=== PATIENT | female | born 1950 | race Caucasian/White ===

== ENCOUNTER 2020-04-08 13:31 | Inpatient (IN) | payer MEDICARE, MEDICAID ==
[2020-04-08 14:58] LABS: Bacteria/HPF None Seen HPF (None Seen); Bilirubin Negative (Negative); Blood, Urine 3+ (Negative); Clarity Extra Turbid (Clear); Glucose, Urine (Dipstick) Normal (Negative); Leukocyte 500 Leu/uL (Negative); Nitrite Negative (Negative); Protein, Urine (Dipstick) 200 mg/dL (Neg-Trace); RBC/HPF Greater than 50 HPF (0-3); Urobilinogen Normal mg/dL (Less than 2); WBC/HPF Greater than 50 HPF (0-3); Yeast-Budding 2+ HPF (None Seen)
[2020-04-08 15:01] LABS: Hemoglobin 10.9 g/dL (12.0-16.0); Mean Corpuscular HGB CONC 33.1 g/dL (32.0-36.0); Mean Corpuscular Hemoglobin 29.7 pg (27.0-31.0); Mean Corpuscular Volume 89.7 fL (78.0-98.0); Mean Platelet Volume 9.6 fL (7.4-10.4); Platelet Count 145 thou/uL (130-400); RBC Distribution Width 12.6 % (11.5-14.5); Red Blood Cell (RBC) Count 3.69 mill/uL (4.20-5.40); White Blood Cell (WBC) Count 3.9 thou/uL (4.8-10.8)
--- NOTE | 2020-04-08 15:05 | CT ---
CT Stone Protocol 04/08/2020 2:17 PM HISTORY: Dysuria and yeast in urine for several weeks. COMPARISON: 01/30/2020 Technique: Multiple contiguous axial CT images are obtained through the abdomen and pelvis without IV contrast. Coronal reformats are provided. FINDINGS: This examination is limited for the evaluation of solid organs and vascular structures due to the lac k of intravenous contrast. Lower Chest: Vascular calcifications in the coronary arteries and involving the thoracic aorta lung b ases are clear. Abdomen: Liver: Grossly normal non-enhanced CT appearance. Gallbladder: Surgically absent. Pancreas: Grossly normal nonenhanced CT appearance. Spleen: Upper limits of normal in size in AP dimension. Adrenals: Grossly normal nonenhanced CT appearance. Kidneys/ureters: Bilateral ureteral stents remain in place with mild persistent bilateral hydronephro sis slightly greater on the left. Bilateral perinephric stranding is again seen Pelvis: Urinary bladder: Incompletely distended. Ureteral stents are located within the urinary bladder. Reproductive Organs: Evidence of hysterectomy. Bowel: Normal caliber. Appendix: Not definitely visualized. Peritoneum: Previously noted lymphadenopathy in the region of the central mesentery has improved, the re is persistent mild inflammatory stranding and haziness of the mesentery in this region. There are mildly prominent lymph nodes in the region gastrohepatic ligament, these lymph nodes have diminis hed in size compared to prior study. The enlarged lymph nodes seen in the central mesentery of the abdomen have also decreased in size. Retroperitoneum: Previously seen retroperitoneal lymphadenopathy does appear improved compared to the prior exam. A precaval lymph node in region of the lynda hepatis previously measured 5.6 cm in greatest dimension, and on today's exam measures 4.4 cm in greatest dimension. Largest left para-aort ic lymph node previously measured 3 cm, and this lymph node on today's examination measures 2 cm. Additional aortocaval lymph nodes much smaller in size. However, there is inflammatory stranding seen in an aortocaval retroperitoneal location. There is also stranding and soft tissue attenuation seen in the left hemipelvis with presacral inflammatory changes and edema which is overall stable com pared to the prior exam. Vessels: Dense vascular calcifications are seen in the abdominal aorta and involving the iliac arteri es as well as splenic artery.. Abdominal Wall: Prominent bilateral inguinal lymph nodes are again seen. Bones: Postoperative changes lumbosacral junction are again seen with degenerative changes in the lum bar spine. No suspicious lytic or sclerotic osseous lesions are identified. IMPRESSION: 1. Bilateral ureteral stents in place with mild bilateral hydronephrosis slightly greater on the left . This is overall similar to the prior exam. Persistent mild symmetric bilateral perinephric stranding is seen. Kidneys are unable to be further evaluated due to lack of intravenous contrast. 2. Spleen remains at the upper limits of normal in size. 3. Improvement in aortocaval and mesenteric lymphadenopathy. Mildly prominent bilateral inguinal lymp h nodes are again seen. Iliac chain lymph nodes are also again seen which are predominantly fatty replaced on today's exam. 4. Inflammatory stranding in the aortocaval/retroperitoneal location with greater inflammatory change s and soft tissue appearing density again seen in the left hemipelvis not significantly changed.
[2020-04-08 15:06] LABS: Yeast-Hyphae 1+ HPF (None Seen)
[2020-04-08 15:19] LABS: ALT (SGPT) 12 U/L (8-55); AST (SGOT) 24 U/L (5-34); Albumin 3.6 g/dL (3.4-4.8); Alkaline Phosphatase 210 U/L (40-110); Anion Gap 11 mmol/L (10-20); BUN (Urea Nitrogen) 23 mg/dL (9.8-20.1); Bilirubin, Total 1.2 mg/dL (0.2-1.2); Calc. Creatinine Clearance 0 mL/min (70-130); Calcium 8.7 mg/dL (7.8-10.44); Carbon Dioxide 25 mmol/L (23-31); Chloride 105 mmol/L (98-107); Estimated GFR-MDRD 39; Globulin 2.5 g/dL (2.4-3.5); Glucose 104 mg/dL (80-115); Potassium 4.1 mmol/L (3.5-5.1); Protein, Total 6.1 g/dL (6.0-8.3); Sodium 137 mmol/L (136-145)
[2020-04-08 15:25] LABS: Band 3 % (5-11); Lymphocytes 57 % (21-51); MDiff Complete? YES; Monocytes 8 % (0-10); Neutrophil 19 % (42-75); Ovalocytes SLIGHT = 2-5 cells (100X) (0-1/hpf); Platelet Morphology Comment Appears Adequate; Polychromasia SLIGHT = 2-3 cells (100X) (0-2/hpf); Reactive Lymphocytes 12 % (0-10); Schistocytes SLIGHT = 2-5 cells (100X) (0-1/hpf)
[2020-04-08] MEDS ORDERED: Vancomycin HCl 25 MG/ML Oral PO SCH (18:30)
[2020-04-08] MEDS ORDERED: MEROPENEM 1 GM/50 ML 1 GM in Premix Bag 1 BAG IVPB SCH (19:00)
[2020-04-08] MEDS: Sodium Chloride 0.9% 1,000 ML IV SCH (20:11)
[2020-04-08] MEDS: Gabapentin 300 MG CAP PO SCH (20:32)
[2020-04-08] MEDS: Ezetimibe 10 MG TAB PO SCH (20:32)
[2020-04-08] MEDS: Insulin Glargine 70 UNITS in Pre-Filled Syringe 1 EACH SC SCH (20:39)
[2020-04-08] MEDS: Voriconazole 50 MG TAB PO SCH (20:41)
[2020-04-08] MEDS: Apixaban 5 MG TAB PO SCH (20:52)
[2020-04-08] MEDS ORDERED: INSULIN GLARGINE HUM REC ANLOG 70 UNIT SQ SCH (21:00)
[2020-04-08] MEDS ORDERED: [UNRECOGNIZED DRUG - OTHER] SQ SCH (21:00)
[2020-04-08 22:41] VITALS: BMI 24.7
[2020-04-09] MEDS: Vancomycin HCl 25 MG/ML Oral PO SCH ×5 (00:41→23:42)
--- NOTE | 2020-04-09 01:40 | HP ---
CHIEF COMPLAINT: Transferred for direct admit from Dr. Simmons' office for bladder infection. HISTORY OF PRESENT ILLNESS: The patient is a 69-year-old female, with past medical history of CLL; coronary artery disease; fibromyalgia; atrial fibrillation, on Eliquis; and diabetes mellitus, who was recently discharged from the hospital after a prolonged hospitalization for Enterococcus bacteremia and UTI. She had bilateral ureteral stent placement in December. The patient completed an outpatient course of vancomycin and subsequently was symptom-free for a few days according to the patient. Afterwards, her symptoms started to return and she visited Dr. Simmons for followup, where her urine culture revealed evidence of fungal infection. She was sent to the hospital for initiation of IV antibiotics after failing an outpatient regimen. REVIEW OF SYSTEMS: Negative, except as noted in the HPI. PAST MEDICAL HISTORY: As noted above. PAST SURGICAL HISTORY: Ear surgery, bladder lift, appendectomy, tubal ligation, hysterectomy, and tonsillectomy. SOCIAL HISTORY: The patient denies alcohol use, illicit drug use, or smoking. FAMILY HISTORY: Noncontributory. ALLERGIES: PATIENT IS ALLERGIC TO ASPIRIN, CEPHALOSPORINS, PENICILLINS, AND QUINOLONES. PHYSICAL EXAMINATION: GENERAL: Patient is alert and oriented x3. HEENT: Head is normocephalic and atraumatic. Extraocular muscles are intact. NECK: Supple. CHEST: Clear to auscultation bilaterally. CARDIOVASCULAR EXAMINATION: Showing normal S1, S2, regular rate and rhythm. No murmurs, rubs, or gallops. ABDOMEN: Soft, nontender, and nondistended. EXTREMITIES: Show no edema or rashes. ASSESSMENT: 1. Fungal urinary tract infection complicated by immunosuppression and ureteral stents with some evidence of ureteral obstruction. 2. Chronic lymphocytic leukemia. 3. Coronary artery disease. 4. Atrial fibrillation. PLAN: Discussed with Dr. Simmons. We will admit the patient to the hospital and initiate voriconazole 400 mg twice daily loading dose and then 200 mg twice daily. We will also initiate meropenem to cover for bacterial infection. The patient did develop Clostridium difficile on her last hospitalization and Dr. Simmons recommended treating her with oral vancomycin prophylactically. Job ID: [id number]
[2020-04-09] MEDS: MEROPENEM 1 GM/50 ML 1 GM in Premix Bag 1 BAG IVPB SCH ×3 (03:48→20:59)
[2020-04-09 07:35] LABS: Anion Gap 10 mmol/L (10-20); BUN (Urea Nitrogen) 19 mg/dL (9.8-20.1); Calc. Creatinine Clearance 52 mL/min (70-130); Calcium 8.2 mg/dL (7.8-10.44); Carbon Dioxide 26 mmol/L (23-31); Chloride 109 mmol/L (98-107); Estimated GFR-MDRD 51; Glucose 113 mg/dL (80-115); Potassium 4.2 mmol/L (3.5-5.1); Sodium 141 mmol/L (136-145)
[2020-04-09 08:31] LABS: Band 13 % (5-11); Hemoglobin 9.9 g/dL (12.0-16.0); Lymphocytes 45 % (21-51); MDiff Complete? YES; Mean Corpuscular HGB CONC 32.2 g/dL (32.0-36.0); Mean Corpuscular Hemoglobin 29.2 pg (27.0-31.0); Mean Corpuscular Volume 90.6 fL (78.0-98.0); Mean Platelet Volume 9.7 fL (7.4-10.4); Monocytes 16 % (0-10); Neutrophil 26 % (42-75); Platelet Count 121 thou/uL (130-400); Platelet Morphology Comment Appears Decreased; RBC Distribution Width 12.4 % (11.5-14.5); RBC Morphology Normal; Red Blood Cell (RBC) Count 3.38 mill/uL (4.20-5.40); White Blood Cell (WBC) Count 2.8 thou/uL (4.8-10.8)
[2020-04-09] MEDS: Gabapentin 300 MG CAP PO SCH ×3 (09:05→21:00)
[2020-04-09] MEDS: Apixaban 5 MG TAB PO SCH ×2 (09:05→21:00)
[2020-04-09] MEDS: Sodium Chloride 0.9% 1,000 ML IV SCH ×2 (09:05→21:30)
[2020-04-09] MEDS: Acetaminophen 325 MG TAB PO PRN (09:09)
--- NOTE | 2020-04-09 10:35 | PDOC.HOSPP ---
- Subjective Encounter Date: 04/09/20 Subjective: The patient complains of lower abdominal pain and dizziness when ambulating. - Objective Vital Signs & Weight: Vital Signs (12 hours) Temp Pulse Resp BP Pulse Ox 04/09/20 07:15 98.2 F 79 16 101/62 96 04/09/20 03:51 97.7 F 82 18 113/66 98 04/09/20 00:00 98 F 82 18 134/62 97 Weight Weight 144 lb 8 oz Result Diagrams: 04/09/20 06:22 04/09/20 06:22 Additional Labs: Accuchecks 04/09/20 04/08/20 05:01 20:41 POC Glucose 130 H 125 H Hospitalist ROS - Medication Medications: Active Medications Generic Name Dose Route Start Last Admin Trade Name Freq PRN Reason Stop Dose Admin Acetaminophen 650 mg 04/08/20 18:20 04/09/20 09:09 Tylenol PO 650 mg Q4H PRN Administration Headache/Fever/Mild Pain (1-3) Apixaban 5 mg 04/08/20 21:00 04/09/20 09:05 Eliquis PO 5 mg BID CORIN Administration Ezetimibe 10 mg 04/08/20 21:00 04/08/20 20:32 Zetia PO 10 mg HS CORIN Administration Gabapentin 600 mg 04/08/20 21:00 04/09/20 09:05 Neurontin PO 600 mg TID CORIN Administration Sodium Chloride 1,000 mls @ 75 mls/hr 04/08/20 19:15 04/09/20 09:05 Normal Saline 0.9% IV 1,000 mls .[id number] CORIN Administration Meropenem 1 gm/ Device 50 mls @ 100 mls/hr 04/09/20 04:00 04/09/20 03:48 IVPB 50 mls 0400,1200,2000 CORIN Administration Insulin Glargine 70 units/ 0.7 mls @ 0 mls/hr 04/08/20 21:00 04/08/20 20:39 Miscellaneous Medication SC 0.7 mls HS CORIN Administration Vancomycin HCl 125 mg 04/08/20 23:59 04/09/20 05:10 First Vancomycin PO 125 mg Q6HR CORIN Administration - Exam General Appearance: awake alert Neck: supple Respiratory: normal chest expansion, no tachypnea Extremities: no cyanosis, no clubbing, no edema Neurological: cranial nerve grossly intact, no weakness Hosp A/P - Plan 1. Complicated fungal UTI. 2. Immunosuppressed status due to CLL. 3. Lower abdominal pain due to cystitis. 4. Dizziness with low blood pressure. 5. Diabetes mellitus on insulin. Continue IV fluids. The patient is on voriconazole, meropenem, and oral vancomycin per ID recommendations. Urine cultures are pending.
[2020-04-09] MEDS: tiZANidine HCl 4 MG TAB PO PRN ×2 (11:20→21:05)
[2020-04-09] MEDS ORDERED: Voriconazole 50 MG TAB PO SCH (11:30)
[2020-04-09] MEDS: Voriconazole 50 MG TAB PO SCH ×2 (11:38→21:02)
[2020-04-09] MEDS: HumuLIN 70/30 (300 UNITS/3 ML VIAL) SC SCH ×3 (11:40→17:10)
[2020-04-09] MEDS: VENCLEXTA PO SCH (13:55)
--- NOTE | 2020-04-09 15:27 | EKG ---
Test Reason : Blood Pressure : / mmHG Vent. Rate : 083 BPM Atrial Rate : 083 BPM P-R Int : 118 ms QRS Dur : 066 ms QT Int : 374 ms P-R-T Axes : 011 -17 018 degrees QTc Int : 439 ms Normal sinus rhythm Normal ECG Confirmed by GREG DING DO ([id number]), editorial assistant JOSE MONDRAGON ([id number]) on 04/09/2020 3:27:20 PM Referred By: Confirmed By:GREG DING DO
[2020-04-09] MEDS ORDERED: Dextrose 5% in Water 1,000 ML IV PRN (17:04)
[2020-04-09] MEDS ORDERED: Dextrose 50% Abboject 50 ML SYRINGE IVP PRN (17:04)
--- NOTE | 2020-04-09 19:34 | CON ---
DATE OF CONSULTATION: 04/09/2020 REASON: Refractory cystitis with multiple drug allergies. HISTORY OF PRESENT ILLNESS: A 69-year-old, whom I had seen a few times in the past few years. The last time was in January 2020 when she presented with a history of CLL, initially managed conservatively, but more recently with an anti-CD20 monoclonal antibody. She presented with bacteremia and obstructive uropathy. She had bilateral stents and she had extensive abdominal and pelvic lymphadenopathy and having developed E faecalis urosepsis. The organism had the usual susceptibility profile and she was discharged on IV vancomycin because of allergy history to beta-lactams. She received it for about 10 days and she also had to take oral vancomycin because of Clostridium difficile colitis. Since discharge, she has had recurrence of the dysuria. We repeated the urine culture and yeast were identified greater than 100,000 colony-forming units per mL and we tried Diflucan, but she reported urticaria-type lesions and we had to discontinue it and we were thinking of giving her voriconazole, but she became quite symptomatic with gross hematuria, so we decided to admit her. She had some low-grade temperature elevation at home. No back pain. No headaches. No shortness of breath. A little bit of cough, but no sputum production. No joint symptoms. No vomiting. PAST MEDICAL HISTORY: Type 2 diabetes; fibromyalgia; CLL with progression and then treatment with anti-CD20 monoclonal antibody; hypertension; cervical cancer, in remission after hysterectomy; and anxiety and depression. HISTORY SURGICAL HISTORY: Lumpectomy, ear surgery, bladder lift, and appendectomy. SOCIAL HISTORY: Former smoker. She used to work as a cook. Disabled. FAMILY HISTORY: Noncontributory. ALLERGIES: CEPHALEXIN, PENICILLIN, ASPIRIN, AND NOW DIFLUCAN. CURRENT MEDICATIONS: 1. Tylenol. 2. Eliquis. 4. Neurontin. 5. Insulin. 6. Meropenem. 7. Venclexta. 8. Tizanidine. 9. Voriconazole. FAMILY HISTORY: Noncontributory. PHYSICAL EXAMINATION: VITAL SIGNS: T-max 99, now it is 98.1; blood pressure 114/70; pulse 84; respirations 18; and O2 saturation 97. SKIN: Unremarkable. Patient has a peripheral IV access. No Campos catheter. HEENT: Ocular movements conjugate. Oral cavity normal. She has no bill moore's slough teeth remaining in place. NECK: Supple. No jugular vein distention. LUNGS: Symmetric, clear breath sounds. HEART: S1 and S2, regular rate. No S3 or S4. ABDOMEN: Diffusely tender, but it is mildly tender. There is no guarding. No rebound tenderness. No bladder distention. There is a more tenderness in the suprapubic region and elsewhere noted. EXTREMITIES: No joint inflammatory activity. No edema. Moves all extremities equally. Pulses 1+ in dorsalis pedis. Cap refill normal. Plantar responses are flexor. No clonus. NEUROLOGIC: Cognitive function appears to be intact. She is oriented. Follows commands. Recollection is good. LABORATORY DATA: White cell count is 3.9 and 2.8, hemoglobin 9.9, platelets 121 , neutrophil percentage 26, 13% bands, total neutrophil count of above 900, and monocyte 16. Chemistry with a creatinine 1.35 and now 1.08. Liver profile normal. Alkaline phosphatase 210 with albumin of 3.6. Urinalysis with greater than 50 rbc's, greater than 50 wbc's, and yeast 1+. IMAGING STUDY: Include an abdomen and pelvis CT done without contrast. The liver was grossly normal. Gallbladder absent. Grossly normal pancreas, upper limits of spleen. Bilateral ureteral stents in place with mild persistent bilateral hydronephrosis, slightly greater on the left side. Bilateral perinephric stranding seen. Urinary bladder incompletely distended. Lymphadenopathy in the central mesentery has improved. There is persistent mild inflammatory stranding in the mesentery and mild mildly prominent lymph nodes in the region of the gastrohepatic ligament. These lymph nodes had diminished in size compared with prior study. Retroperitoneal lymphadenopathy does appear improved compared to the prior exam. ASSESSMENT AND DISCUSSION: 1. Type 2 diabetes. 2. Chronic lymphocytic leukemia with chemotherapy with anti-CD20 monoclonal antibody with improvement in lymphadenopathy in the abdominal area. Stents for management of obstructive uropathy with sepsis due to E faecalis in January, which has been treated. Now, she has likely Martha species and could not tolerate Diflucan and is currently on voriconazole. DISCUSSION: Patient has a new set of urine sample for evaluation and we will see what grows out of it. We will continue meropenem and voriconazole for the time being. Hopefully, the stents will be able to be removed soon. We will have Dr. Weston take a look at her. Job ID: [id number] [facility]
[2020-04-09] MEDS: Ezetimibe 10 MG TAB PO SCH (20:59)
[2020-04-09] MEDS: Insulin Glargine 70 UNITS in Pre-Filled Syringe 1 EACH SC SCH (21:01)
[2020-04-10] MEDS: Acetaminophen 325 MG TAB PO PRN ×2 (02:20→20:47)
[2020-04-10] MEDS: MEROPENEM 1 GM/50 ML 1 GM in Premix Bag 1 BAG IVPB SCH ×2 (04:06→11:58)
[2020-04-10] MEDS: Vancomycin HCl 25 MG/ML Oral PO SCH (05:46)
[2020-04-10 06:33] LABS: Hemoglobin 10.1 g/dL (12.0-16.0); Mean Corpuscular HGB CONC 32.7 g/dL (32.0-36.0); Mean Corpuscular Hemoglobin 29.9 pg (27.0-31.0); Mean Corpuscular Volume 91.4 fL (78.0-98.0); Mean Platelet Volume 8.9 fL (7.4-10.4); Platelet Count 147 thou/uL (130-400); RBC Distribution Width 12.5 % (11.5-14.5); Red Blood Cell (RBC) Count 3.39 mill/uL (4.20-5.40); White Blood Cell (WBC) Count 3.8 thou/uL (4.8-10.8)
[2020-04-10 06:34] LABS: Anion Gap 10 mmol/L (10-20); BUN (Urea Nitrogen) 19 mg/dL (9.8-20.1); Calc. Creatinine Clearance 47 mL/min (70-130); Calcium 7.6 mg/dL (7.8-10.44); Carbon Dioxide 24 mmol/L (23-31); Chloride 111 mmol/L (98-107); Estimated GFR-MDRD 44; Glucose 60 mg/dL (80-115); Potassium 3.7 mmol/L (3.5-5.1); Sodium 141 mmol/L (136-145)
[2020-04-10 07:18] LABS: Band 1 % (5-11); Eosinophils 1 % (0-10); Lymphocytes 63 % (21-51); MDiff Complete? YES; Monocytes 10 % (0-10); Neutrophil 24 % (42-75); Platelet Morphology Comment Appears Adequate; RBC Morphology Normal; Reactive Lymphocytes 1 % (0-10)
[2020-04-10] MEDS: Apixaban 5 MG TAB PO SCH ×2 (08:19→20:49)
[2020-04-10] MEDS: Gabapentin 300 MG CAP PO SCH ×3 (08:19→20:48)
[2020-04-10] MEDS: HumuLIN 70/30 (300 UNITS/3 ML VIAL) SC SCH (08:22)
[2020-04-10] MEDS: Voriconazole 50 MG TAB PO SCH ×2 (08:26→22:30)
[2020-04-10] MEDS: Sodium Chloride 0.45% 1,000 ML IV SCH ×2 (11:57→20:50)
[2020-04-10] MEDS: VENCLEXTA PO SCH (11:58)
[2020-04-10] MEDS ORDERED: VENCLEXTA PO SCH (12:00)
--- NOTE | 2020-04-10 16:41 | PRG ---
DATE OF SERVICE: 04/10/2020 SUBJECTIVE: The patient is still having hematuria and dysuria, started with diarrhea. No headaches. No visual symptoms. No sore throat, odynophagia, or dysphagia. No abdominal pain. OBJECTIVE: VITAL SIGNS: T-max 100.5, BP 110/69, O2 saturations 99, pulse 80, and respirations 16. GENERAL: Appears in no acute distress. HEENT: Ocular movements conjugate. LUNGS: Symmetric clear breath sounds. HEART: S1 and S2. Regular rate. No S3 or S4. ABDOMEN: Soft, not distended, tender. Mild suprapubic distention. EXTREMITIES: Moves extremities equally. LABORATORY DATA: White cell count 3.8, hemoglobin 10.1, platelets 147. Sodium 141 and creatinine 1.21. Microbiology show Martha krusei. ASSESSMENT AND DISCUSSION: Type 2 diabetes, CLL on anti-CD20 monoclonal antibody treatment with improvement in lymphadenopathy still stents for management of obstructive uropathy associated with lymphoma, sepsis due to E. faecalis in January. Now, she has Martha krusei infection. We will contact Urology, Dr. Weston regarding the above. Discontinue meropenem and continue voriconazole. Add Micafungin. Although urinary tract penetration is limited, clinical reported experience has been positive. Job ID: [id number] [facility]
[2020-04-10] MEDS: Micafungin 100 MG in Sodium Chloride 0.9% 100 ML IVPB SCH (17:41)
[2020-04-10] MEDS: Insulin Regular 300 UNITS/3 ML VIAL SC PRN (17:44)
--- NOTE | 2020-04-10 18:19 | PDOC.HOSPP ---
- Subjective Encounter Date: 04/10/20 Subjective: The patient complains of hematuria that has been present for the past 2 days. - Objective Vital Signs & Weight: Vital Signs (12 hours) Temp Pulse Resp BP BP BP Pulse Ox 04/10/20 08:17 99 04/10/20 07:47 98.7 F 80 16 110/69 88/52 L 105/52 L 99 Weight Admit Weight 144 lb Weight 144 lb 8 oz I&O: 04/09/20 04/10/20 04/11/20 06:59 06:59 06:59 Intake Total 2575 Balance 2575 Result Diagrams: 04/10/20 05:53 04/10/20 05:53 Additional Labs: Accuchecks 04/10/20 04/10/20 04/10/20 16:45 11:21 08:26 POC Glucose 277 H 158 H 101 04/10/20 04/10/20 04/09/20 06:26 05:43 20:03 POC Glucose 96 52 L* 168 H Hospitalist ROS - Medication Medications: Active Medications Generic Name Dose Route Start Last Admin Trade Name Freq PRN Reason Stop Dose Admin Acetaminophen 650 mg 04/08/20 18:20 04/10/20 02:20 Tylenol PO 650 mg Q4H PRN Administration Headache/Fever/Mild Pain (1-3) Apixaban 5 mg 04/08/20 21:00 04/10/20 08:19 Eliquis PO 5 mg BID CORIN Administration Dextrose/Water 25 gm 04/09/20 17:04 04/09/20 17:11 Dextrose 50% IVP 25 gm PRN PRN Administration HYPOGLYCEMIA PROTOCOL Ezetimibe 10 mg 04/08/20 21:00 04/09/20 20:59 Zetia PO 10 mg HS CORIN Administration Gabapentin 600 mg 04/08/20 21:00 04/10/20 15:25 Neurontin PO 600 mg TID CORIN Administration Sodium Chloride 1,000 mls @ 100 mls/hr 04/10/20 10:15 04/10/20 11:57 1/2 Normal Saline IV 1,000 mls .Q10H CORIN Administration Micafungin Sodium 100 mg/ 100 mls @ 100 mls/hr 04/10/20 17:00 04/10/20 17:41 Sodium Chloride IVPB 100 mls 1700 CORIN Administration Insulin Human Regular 0 units 04/09/20 17:04 04/10/20 17:44 Humulin R SC 4 unit .MILD SLIDING PRN Administration MILD SLIDING SCALE Protocol Venclexta Patient's 0 each 04/09/20 12:00 04/10/20 11:58 Home Medication PO 1 each 1200 CORIN Administration Sodium Chloride 10 ml 04/09/20 21:00 04/10/20 08:23 Flush - Normal Saline IVF Not Given Q12HR CORIN Tizanidine HCl 2 mg 04/09/20 10:27 04/09/20 21:05 Zanaflex PO 2 mg TID PRN Administration Muscle Spasm Voriconazole 200 mg 04/09/20 21:00 04/10/20 08:26 Vfend PO 200 mg Q12HR CORIN Administration - Exam General Appearance: NAD, awake alert ENT: normocephalic atraumatic Neck: supple, no JVD Respiratory: normal chest expansion, no tachypnea Extremities: no cyanosis, no clubbing, no edema Neurological: cranial nerve grossly intact, no focal deficits Hosp A/P - Plan 1. Complicated fungal UTI. 2. Immunosuppressed status due to CLL. 3. Lower abdominal pain due to cystitis. 4. Dizziness with low blood pressure. 5. Diabetes mellitus on insulin. 6. Hematuria. 7. Hypoglycemia. Continue IV fluids. The patient is on voriconazole, meropenem, and oral vancomycin per ID recommendations. Urine cultures are pending. Hematuria is likely related to her UTI. H&H stable. If her symptoms persist, we will consult her urologist. Insulin has been placed on hold due to hypoglycemia.
[2020-04-10] MEDS: tiZANidine HCl 4 MG TAB PO PRN (20:47)
[2020-04-10] MEDS: Ezetimibe 10 MG TAB PO SCH (20:49)
--- NOTE | 2020-04-10 21:20 | PDOC.EVN ---
Event Note - Event Note Event Note: Nurse called, reported new onset diarrhea x 5 stools and fever. Will get sepsis workup
--- NOTE | 2020-04-10 22:18 | RAD ---
CHEST 1 VIEW: Date: 04/10/2020 HISTORY: Fever. COMPARISON: Radiograph dated 02/06/2020. FINDINGS: Port catheter is in place with tip at the inferior SVC. Lungs are clear. No pneumothorax. No effusion . No acute osseous abnormality. IMPRESSION: No acute intrathoracic abnormality. POS: HOME
[2020-04-10 22:47] LABS: Lactic Acid 1.3 mmol/L (0.5-2.2)
[2020-04-10 22:51] LABS: Anion Gap 11 mmol/L (10-20); BUN (Urea Nitrogen) 17 mg/dL (9.8-20.1); Calc. Creatinine Clearance 48 mL/min (70-130); Calcium 7.5 mg/dL (7.8-10.44); Carbon Dioxide 20 mmol/L (23-31); Chloride 111 mmol/L (98-107); Estimated GFR-MDRD 46; Glucose 193 mg/dL (80-115); Potassium 3.9 mmol/L (3.5-5.1); Sodium 138 mmol/L (136-145)
[2020-04-10 22:59] LABS: Band 11 % (5-11); Eosinophils 1 % (0-10); Hemoglobin 9.5 g/dL (12.0-16.0); Large Platelets SLIGHT; Lymphocytes 50 % (21-51); MDiff Complete? YES; Mean Corpuscular HGB CONC 31.9 g/dL (32.0-36.0); Mean Corpuscular Hemoglobin 29.4 pg (27.0-31.0); Mean Corpuscular Volume 92.1 fL (78.0-98.0); Mean Platelet Volume 9.3 fL (7.4-10.4); Monocytes 8 % (0-10); Neutrophil 30 % (42-75); Platelet Count 125 thou/uL (130-400); Platelet Morphology Comment Appears Adequate; RBC Distribution Width 12.6 % (11.5-14.5); Red Blood Cell (RBC) Count 3.23 mill/uL (4.20-5.40); White Blood Cell (WBC) Count 2.4 thou/uL (4.8-10.8)
[2020-04-11] MEDS: Sodium Chloride 0.45% 1,000 ML IV SCH ×2 (05:40→15:04)
[2020-04-11 06:30] LABS: Anion Gap 9 mmol/L (10-20); BUN (Urea Nitrogen) 18 mg/dL (9.8-20.1); Calc. Creatinine Clearance 49 mL/min (70-130); Calcium 7.5 mg/dL (7.8-10.44); Carbon Dioxide 24 mmol/L (23-31); Chloride 111 mmol/L (98-107); Estimated GFR-MDRD 47; Glucose 134 mg/dL (80-115); Potassium 3.8 mmol/L (3.5-5.1); Sodium 140 mmol/L (136-145)
[2020-04-11 08:41] LABS: Band 13 % (5-11); Eosinophils 2 % (0-10); Hemoglobin 9.5 g/dL (12.0-16.0); Lymphocytes 64 % (21-51); MDiff Complete? YES; Mean Corpuscular HGB CONC 31.1 g/dL (32.0-36.0); Mean Corpuscular Hemoglobin 28.5 pg (27.0-31.0); Mean Corpuscular Volume 91.9 fL (78.0-98.0); Mean Platelet Volume 9.1 fL (7.4-10.4); Monocytes 8 % (0-10); Neutrophil 13 % (42-75); Platelet Count 128 thou/uL (130-400); RBC Distribution Width 12.5 % (11.5-14.5); Red Blood Cell (RBC) Count 3.34 mill/uL (4.20-5.40); White Blood Cell (WBC) Count 2.6 thou/uL (4.8-10.8)
[2020-04-11] MEDS ORDERED: Vancomycin HCl 25 MG/ML Oral PO SCH (09:00)
[2020-04-11] MEDS: Apixaban 5 MG TAB PO SCH (09:47)
[2020-04-11] MEDS: Gabapentin 300 MG CAP PO SCH ×3 (09:47→20:44)
[2020-04-11] MEDS ORDERED: Voriconazole 50 MG TAB PO SCH (10:30)
[2020-04-11] MEDS: Voriconazole 50 MG TAB PO SCH ×2 (11:08→21:17)
[2020-04-11] MEDS: VENCLEXTA PO SCH (12:04)
[2020-04-11] MEDS: Insulin Regular 300 UNITS/3 ML VIAL SC PRN ×2 (12:05→17:32)
--- NOTE | 2020-04-11 14:58 | PDOC.HOSPP ---
- Subjective Encounter Date: 04/11/20 Encounter Time: 14:45 Subjective: f/u for Martha UTI on Voriconazole/Micafungin. Pt reports bloody urine most notable in am currently on Eliquis for A-fib. Also tx for C. diff with po Vancomycin. - Objective Vital Signs & Weight: Vital Signs (12 hours) Temp Pulse Resp BP BP Pulse Ox 04/11/20 11:18 98.7 F 89 16 145/75 H 100 04/11/20 07:47 98.7 F 84 16 128/69 97 04/11/20 03:17 98.3 F 77 18 123/70 100 Weight Admit Weight 144 lb Weight 144 lb 8 oz I&O: 04/10/20 04/11/20 04/12/20 06:59 06:59 06:59 Intake Total 2575 1900 Balance 2575 1900 Result Diagrams: 04/11/20 05:49 04/11/20 05:49 Additional Labs: Accuchecks 04/11/20 04/11/20 04/10/20 11:25 05:31 20:13 POC Glucose 234 H 135 H 197 H 04/10/20 16:45 POC Glucose 277 H Microbiology 04/10/20 10:30 Stool - Loose Stool Lactoferrin - Final 04/10/20 10:30 Stool - Loose Rapid Parasite Screen - Final 04/10/20 10:30 Stool - Loose Campylobacter Antigen Assay - Final 04/10/20 10:30 Stool - Loose Shiga Toxin Test - Final 04/10/20 10:30 Stool C. difficile GDH Antigen & Toxins - Final 04/08/20 14:36 Urine voided Urine Culture - Final Presumptive Martha Krusei 04/10/20 22:21 Venous blood - Right Hand Blood Culture - Preliminary Specimen has been received and culture in progress. No Growth to date. 04/10/20 22:19 Venous blood - Right Arm Blood Culture - Preliminary Specimen has been received and culture in progress. No Growth to date. Radiology Reviewed by me: Yes (PCXR - negative) Hospitalist ROS - Medication Medications: Active Medications Generic Name Dose Route Start Last Admin Trade Name Freq PRN Reason Stop Dose Admin Acetaminophen 650 mg 04/08/20 18:20 04/10/20 20:47 Tylenol PO 650 mg Q4H PRN Administration Headache/Fever/Mild Pain (1-3) Apixaban 5 mg 04/08/20 21:00 04/11/20 09:47 Eliquis PO 5 mg BID CORIN Administration Dextrose/Water 25 gm 04/09/20 17:04 04/09/20 17:11 Dextrose 50% IVP 25 gm PRN PRN Administration HYPOGLYCEMIA PROTOCOL Ezetimibe 10 mg 04/08/20 21:00 04/10/20 20:49 Zetia PO 10 mg HS CORIN Administration Gabapentin 600 mg 04/08/20 21:00 04/11/20 09:47 Neurontin PO 600 mg TID CORIN Administration Sodium Chloride 1,000 mls @ 100 mls/hr 04/10/20 10:15 04/11/20 05:40 1/2 Normal Saline IV Not Given .Q10H CORIN Micafungin Sodium 100 mg/ 100 mls @ 100 mls/hr 04/10/20 17:00 04/10/20 17:41 Sodium Chloride IVPB 100 mls 1700 CORIN Administration Insulin Human Regular 0 units 04/09/20 17:04 04/11/20 12:05 Humulin R SC 3 unit .MILD SLIDING PRN Administration MILD SLIDING SCALE Protocol Venclexta Patient's 0 each 04/09/20 12:00 04/11/20 12:04 Home Medication PO 1 each 1200 CORIN Administration Sodium Chloride 10 ml 04/09/20 21:00 04/11/20 09:48 Flush - Normal Saline IVF 10 ml Q12HR CORIN Administration Tizanidine HCl 2 mg 04/09/20 10:27 04/10/20 20:47 Zanaflex PO 2 mg TID PRN Administration Muscle Spasm Vancomycin HCl 125 mg 04/11/20 09:00 04/11/20 09:48 First Vancomycin PO 125 mg DAILY CORIN Administration Voriconazole 200 mg 04/09/20 21:00 04/11/20 11:08 Vfend PO Not Given Q12HR CORIN - Exam General Appearance: NAD, awake alert Eye: PERRL, anicteric sclera ENT: normocephalic atraumatic, no oropharyngeal lesions Neck: supple, symmetric, no JVD, no thyromegaly Heart: RRR, no gallops, no rubs, normal peripheral pulses Heart - other findings: S1, S2 Respiratory: CTAB, no wheezes, no rales, no ronchi, normal chest expansion Gastrointestinal: soft, non-tender, non-distended, normal bowel sounds, no palpable masses Extremities: no cyanosis, no clubbing, no edema Skin: normal turgor, no lesions Neurological: cranial nerve grossly intact, no new deficit Musculoskeletal: normal tone, normal strength, no muscle wasting Psychiatric: normal affect, A&O x 3 Hosp A/P (1) Martha UTI Code(s): B37.49 - OTHER UROGENITAL CANDIDIASIS Status: Acute Plan: Continue Voriconazol/Micafungin, consider ureteral stent exchange, hold Eliquis (2) Clostridium difficile diarrhea Code(s): A04.72 - ENTEROCOLITIS D/T CLOSTRIDIUM DIFFICILE, NOT SPCF RECUR Status: Acute Plan: Continue po Vancomycin, contact precautions (3) Acute kidney injury Code(s): N17.9 - ACUTE KIDNEY FAILURE, UNSPECIFIED Status: Acute Plan: Improved, continue IVF's, avoid nephrotoxic meds and limit contrast (4) Chronic lymphocytic leukemia (CLL), B-cell Code(s): C91.10 - CHRONIC LYMPHOCYTIC LEUK OF B-CELL TYPE NOT ACHIEVE REMIS Status: Chronic Plan: Continue chemotherapeutics as outpt - Plan continue antibiotics, out of bed/ambulate, DVT proph w/SCDs Stable overall Hold Eliquis Continue Voriconazole/Micafungin OOB/ambulate Contiue Vancomycin po AM lab: BMP, CBC
--- NOTE | 2020-04-11 16:12 | PRG ---
DATE OF SERVICE: 04/11/2020 SUBJECTIVE: Ms. Aquino is still with dysuria and still having diarrhea. Apparently, she was seen by Dr. Weston or his assistant professor of surgery and/or may be one of the urologists covering for Dr. Weston. Apparently, there is a plan of eventually replacing the stents before she was discharged. No respiratory symptoms. No vomiting. No joint symptoms. She did have a temperature elevation up to 101.6 at 8 p.m., yesterday. She is now afebrile. OBJECTIVE: VITAL SIGNS: Blood pressure 140/70, pulse 89, respirations 16, and O2 saturation is 100. GENERAL: Awake, alert, and oriented. LUNGS: Clear. HEART: S1 and S2, regular rate. ABDOMEN: Soft with mild suprapubic tenderness. EXTREMITIES: Moves all extremities equally. LABORATORY DATA: White cell count 2.6, hemoglobin 9.5, platelets 128, 13% neutrophils, 13% bands, 64% lymphocytes. Sodium 140, creatinine is at 1.16, which is down from admission. 2 sets of blood cultures submitted yesterday are no growth thus far. She also had a chest x-ray, I think probably because of the febrile episode, it did not show any abnormalities. ASSESSMENT AND DISCUSSION: Type 2 diabetes, chronic lymphocytic leukemia on anti-CD20 monoclonal antibody treatment with improvement in lymphadenopathy, stents for management of obstructive uropathy associated with lymphoma. Previous Enterococcus faecalis sepsis in January, now with Martha krusei infection in the urinary tract, which failed outpatient treatment due to Diflucan allergy. Martha krusei is not responsive to Diflucan anyways. We did not know if there were species involved. Now, she is on voriconazole and micafungin to be continued, and our endpoint here will be resolution of the diarrhea, which is secondary to Clostridium difficile probably. She is on vancomycin. We will have to increase the vancomycin to 4 times a day. Job ID: [id number]
--- NOTE | 2020-04-11 17:05 | CON ---
DATE OF CONSULTATION: 04/11/2020 REASON FOR CONSULTATION: Urinary tract infection, bilateral ureteral obstruction with stents. HISTORY OF PRESENT ILLNESS: Ms. Cervantes is a 69-year-old female who has obstructive uropathy from lymphadenopathy from CLL. She had ureteral stents placed in approximately 12/[address] Weston. In the records, an exact date has not been seen by me as they were placed at [place] in [facility]. She most recently developed enterococcal urosepsis in 01/2020, and was treated with IV antibiotics. She was discharged home on IV antibiotics, but recently developed a fever, dysuria, and gross hematuria again. She has since been admitted here at [facility], and has had imaging and laboratory study. Her urine culture has grown Martha krusei. CT scan demonstrates improved lymphadenopathy. Both ureteral stents are in good position. She has burning at the end of her stream, continues to have hematuria. PAST MEDICAL HISTORY: 1. Type 2 diabetes. 2. CLL, currently on anti-CD20 monoclonal antibody therapy. 3. Hypertension. 4. Prior history of cervical cancer status post hysterectomy. 5. Fibromyalgia. 6. Anxiety. 7. Depression. PAST SURGICAL HISTORY: Includes: 1. Hysterectomy. 2. Appendectomy. 3. Bladder lift surgery. 4. Ureteral stent placement. 5. Lumpectomy. SOCIAL HISTORY: She is currently not employed. She has a history of smoking in the past. FAMILY HISTORY: Noncontributory. ALLERGIES: INCLUDE KEFLEX, PENICILLIN, ASPIRIN, AND SHE APPARENTLY DEVELOPED URTICARIA LIKE SYMPTOMS AFTER RECENT TRIAL OF DIFLUCAN AN OUTPATIENT. MEDICATIONS: Chronic medications at home include: 1. Neurontin. 2. Insulin. 3. Tizanidine. 4. Eliquis. She was given meropenem when she presented to the hospital, but this has been discontinued and she is on micafungin now. REVIEW OF SYSTEMS: RESPIRATORY: No shortness of breath. CARDIOVASCULAR: Denies chest pain or palpitations. GASTROINTESTINAL: She has recently redeveloped some diarrhea during this hospitalization. She has been diagnosed with C difficile in 01/2020 and was treated with oral vancomycin. GENITOURINARY: Please see history of present illness. PHYSICAL EXAMINATION: GENERAL: She is awake and alert. She is in no distress at this time. VITAL SIGNS: Most recent temperature 98.7, pulse 89, respiratory rate 16, room air saturation 100%. ABDOMEN: Soft and nontender. No palpable masses. Liver and spleen not palpable. No abdominal tenderness noted. EXTREMITIES: No edema noted. GENITOURINARY: Deferred. CHEST: Clear to auscultation. CARDIOVASCULAR: No murmurs. MICROBIOLOGY DATA: Martha krusei in the urine. LABORATORY DATA: White blood cell count 2.6, hemoglobin 9.5, and hematocrit 30.7. Creatinine 1.16. IMPRESSION: Ms. Cervantes is a 69-year-old female with CLL on CD20 monoclonal antibody therapy. At the time of her diagnosis, she was noted to have bilateral hydronephrosis from lymphadenopathy and stents were placed, I believe, in approximately 12/2019. She had an enterococcal urosepsis in January, and now appears to have fungal urosepsis. I think it would be schulte to change her stents while she was receiving antifungal therapy to prevent recurrence from fungal seeding of the current double-J stents. Ideally, this should be performed while she is in the hospital to prevent return trip for stent removal or replacement. RECOMMENDATIONS: Stent removal and replacement while on culture appropriate therapy. Job ID: [id number]
[2020-04-11] MEDS: Micafungin 100 MG in Sodium Chloride 0.9% 100 ML IVPB SCH (17:28)
[2020-04-11] MEDS: Vancomycin HCl 25 MG/ML Oral PO SCH (17:29)
[2020-04-11] MEDS: Ezetimibe 10 MG TAB PO SCH (20:44)
[2020-04-11] MEDS: tiZANidine HCl 4 MG TAB PO PRN (21:16)
[2020-04-12] MEDS: Vancomycin HCl 25 MG/ML Oral PO SCH ×4 (00:09→18:03)
[2020-04-12] MEDS: Sodium Chloride 0.45% 1,000 ML IV SCH ×3 (00:09→21:38)
[2020-04-12 06:18] LABS: Hemoglobin 9.3 g/dL (12.0-16.0); Mean Corpuscular HGB CONC 32.3 g/dL (32.0-36.0); Mean Corpuscular Hemoglobin 29.6 pg (27.0-31.0); Mean Corpuscular Volume 91.5 fL (78.0-98.0); Mean Platelet Volume 8.8 fL (7.4-10.4); Platelet Count 124 thou/uL (130-400); RBC Distribution Width 12.4 % (11.5-14.5); Red Blood Cell (RBC) Count 3.14 mill/uL (4.20-5.40); White Blood Cell (WBC) Count 2.5 thou/uL (4.8-10.8)
[2020-04-12] MEDS: Insulin Regular 300 UNITS/3 ML VIAL SC PRN ×2 (06:21→17:23)
[2020-04-12 06:26] LABS: Anion Gap 10 mmol/L (10-20); BUN (Urea Nitrogen) 15 mg/dL (9.8-20.1); Calc. Creatinine Clearance 59 mL/min (70-130); Calcium 7.5 mg/dL (7.8-10.44); Carbon Dioxide 23 mmol/L (23-31); Chloride 111 mmol/L (98-107); Estimated GFR-MDRD 58; Glucose 172 mg/dL (80-115); Potassium 4.3 mmol/L (3.5-5.1); Sodium 140 mmol/L (136-145)
[2020-04-12 06:51] LABS: Band 9 % (5-11); Eosinophils 3 % (0-10); Lymphocytes 50 % (21-51); MDiff Complete? YES; Monocytes 16 % (0-10); Neutrophil 20 % (42-75); Reactive Lymphocytes 2 % (0-10)
[2020-04-12] MEDS: Gabapentin 300 MG CAP PO SCH ×3 (08:07→21:35)
[2020-04-12] MEDS: Voriconazole 50 MG TAB PO SCH ×2 (09:31→21:45)
[2020-04-12] MEDS: VENCLEXTA PO SCH (11:35)
--- NOTE | 2020-04-12 16:29 | PRG ---
DATE OF SERVICE: 04/12/2020 SUBJECTIVE: Starting to feel improvement in the cystitis related pain. The stool is getting a bit harder. No respiratory symptoms. OBJECTIVE: VITAL SIGNS: T max 99.3 and blood pressure 150/74. LUNGS: Clear. HEART: S1 and S2. Regular rate. ABDOMEN: Mild tenderness in suprapubic area. LABORATORY DATA: White cell count is at 2.5, hemoglobin 9.3, platelets 124. Sodium 140, creatinine 0.96. The toxigenic C difficile PCR toxin was negative at this point. ASSESSMENT AND DISCUSSION: Chronic lymphocytic leukemia, on anti-CD20 inhibitor with improvement in lymphadenopathy associated renal obstruction. Stents in place, need to be replaced. Dr. Allison apparently will do it tomorrow or maybe the day after. The plan is to discharge her on oral voriconazole, which needs to be approved by her insurance company and need to fill preauthorization and we will go ahead and submit voriconazole level and may have to increase the dosage. Job ID: [id number] MTDD
--- NOTE | 2020-04-12 17:00 | PDOC.HOSPP ---
- Subjective Encounter Date: 04/12/20 Encounter Time: 16:55 Subjective: f/u for fungal UTI with Martha krusei on Voriconazole/Micafungin. Plan for exchange of ureteral stents per Urology. Eliquis on hold currently. Urine more clear per pt report. - Objective Vital Signs & Weight: Vital Signs (12 hours) Temp Pulse Resp BP Pulse Ox 04/12/20 08:00 99 04/12/20 07:52 99.3 F 86 16 150/74 H 99 Weight Admit Weight 144 lb Weight 144 lb 8 oz I&O: 04/11/20 04/12/20 04/13/20 06:59 06:59 06:59 Intake Total 1900 1600 Balance 1900 1600 Result Diagrams: 04/12/20 05:37 04/12/20 05:37 Additional Labs: Accuchecks 04/12/20 04/12/20 04/11/20 11:25 05:15 21:24 POC Glucose 189 H 224 H 128 H 04/11/20 16:32 POC Glucose 225 H Microbiology 04/10/20 10:30 Stool - Loose Stool Lactoferrin - Final 04/10/20 10:30 Stool - Loose Rapid Parasite Screen - Final 04/10/20 10:30 Stool - Loose Campylobacter Antigen Assay - Final 04/10/20 10:30 Stool - Loose Shiga Toxin Test - Final 04/10/20 10:30 Stool C. difficile GDH Antigen & Toxins - Final 04/08/20 14:36 Urine voided Urine Culture - Final Presumptive Martha Krusei 04/10/20 22:21 Venous blood - Right Hand Blood Culture - Preliminary Specimen has been received and culture in progress. No Growth to date. 04/10/20 22:19 Venous blood - Right Arm Blood Culture - Preliminary Specimen has been received and culture in progress. No Growth to date. Hospitalist ROS - Medication Medications: Active Medications Generic Name Dose Route Start Last Admin Trade Name Freq PRN Reason Stop Dose Admin Acetaminophen 650 mg 04/08/20 18:20 04/10/20 20:47 Tylenol PO 650 mg Q4H PRN Administration Headache/Fever/Mild Pain (1-3) Dextrose/Water 25 gm 04/09/20 17:04 04/09/20 17:11 Dextrose 50% IVP 25 gm PRN PRN Administration HYPOGLYCEMIA PROTOCOL Ezetimibe 10 mg 04/08/20 21:00 04/11/20 20:44 Zetia PO 10 mg HS CORIN Administration Gabapentin 600 mg 04/08/20 21:00 04/12/20 15:17 Neurontin PO 600 mg TID CORIN Administration Sodium Chloride 1,000 mls @ 100 mls/hr 04/10/20 10:15 04/12/20 09:31 1/2 Normal Saline IV 1,000 mls .Q10H CORIN Administration Micafungin Sodium 100 mg/ 100 mls @ 100 mls/hr 04/10/20 17:00 04/11/20 17:28 Sodium Chloride IVPB 100 mls 1700 CORIN Administration Insulin Human Regular 0 units 04/09/20 17:04 04/12/20 06:21 Humulin R SC 3 unit .MILD SLIDING PRN Administration MILD SLIDING SCALE Protocol Venclexta Patient's 0 each 04/09/20 12:00 04/12/20 11:35 Home Medication PO 1 each 1200 CORIN Administration Sertraline HCl 100 mg 04/12/20 09:00 04/12/20 08:07 Zoloft PO 100 mg DAILY CORIN Administration Sodium Chloride 10 ml 04/09/20 21:00 04/12/20 09:31 Flush - Normal Saline IVF 10 ml Q12HR CORIN Administration Tizanidine HCl 2 mg 04/09/20 10:27 04/11/20 21:16 Zanaflex PO 2 mg TID PRN Administration Muscle Spasm Vancomycin HCl 125 mg 04/11/20 18:00 04/12/20 11:36 First Vancomycin PO 125 mg Q6HR CORIN Administration Voriconazole 200 mg 04/09/20 21:00 04/12/20 09:31 Vfend PO 200 mg Q12HR CORIN Administration - Exam General Appearance: NAD, awake alert Eye: PERRL, anicteric sclera ENT: normocephalic atraumatic, no oropharyngeal lesions Neck: supple, symmetric, no JVD, no thyromegaly Heart: RRR, no gallops, no rubs, normal peripheral pulses Heart - other findings: S1, S2 Respiratory: CTAB, no wheezes, no rales, no ronchi, normal chest expansion Gastrointestinal: soft, non-tender, non-distended, normal bowel sounds Extremities: no cyanosis, no clubbing, no edema Skin: normal turgor, no lesions Neurological: cranial nerve grossly intact, no new deficit Musculoskeletal: normal tone, normal strength, no muscle wasting Psychiatric: normal affect, A&O x 3 Hosp A/P (1) Martha UTI Code(s): B37.49 - OTHER UROGENITAL CANDIDIASIS Status: Acute Plan: Continue Voriconazole/Micafungin, plan for outpt mgmt with Voriconazole pending insurance approval (2) Clostridium difficile diarrhea Code(s): A04.72 - ENTEROCOLITIS D/T CLOSTRIDIUM DIFFICILE, NOT SPCF RECUR Status: Acute Plan: Continue Vancomycin po, add Florastor (3) Acute kidney injury Code(s): N17.9 - ACUTE KIDNEY FAILURE, UNSPECIFIED Status: Acute (4) Chronic lymphocytic leukemia (CLL), B-cell Code(s): C91.10 - CHRONIC LYMPHOCYTIC LEUK OF B-CELL TYPE NOT ACHIEVE REMIS Status: Chronic - Plan plan discussed w/ family, continue antibiotics, PT/OT, social welfare clerk, out of bed/ambulate, DVT proph w/SCDs Stable overall Hold Eliquis Continue Voriconazole/Micafungin OOB/ambulate Contiue Vancomycin po Add Florastor 250mg po daily AM lab: BMP, CBC Plan for ureteral exchange in next 24-48h
[2020-04-12] MEDS: Micafungin 100 MG in Sodium Chloride 0.9% 100 ML IVPB SCH (17:22)
[2020-04-12] MEDS ORDERED: Saccharomyces boulardii 250 MG CAP PO SCH (17:30)
[2020-04-12] MEDS: Ezetimibe 10 MG TAB PO SCH (21:36)
--- NOTE | 2020-04-12 21:37 | PRG ---
DATE OF SERVICE: 04/12/2020 SUBJECTIVE: Diarrhea that has been persistent. She had a fever yesterday, but none today. Urine is clearing OBJECTIVE: VITAL SIGNS: Temperature 98.5, blood pressure 132/74, pulse 82, respiratory rate 18, O2 saturation 96%. ABDOMEN: Soft. No peritoneal signs. IMPRESSION: Her hematuria has improved, but she continues to have diarrhea. Her culture was positive and she is on appropriate antibiotic therapy at this point , as per Dr. Simmons. It is likely that her ureteral stents are colonized and if antibiotic therapy is discontinued, it is likely she will recur with infection. For that reason, I recommended exchanging the ureteral stents while she is on antibiotic therapy. It is unclear to me when her discharge is anticipated. I will schedule stent exchange tomorrow to prevent delaying discharge. PLAN: Cystoscopy, stent removal and replacement. I have discussed the procedure, potential limitations, alternatives, and complications. She does wish to proceed. Job ID: [id number] MTDD
[2020-04-12] MEDS: tiZANidine HCl 4 MG TAB PO PRN (22:57)
[2020-04-13] MEDS: Vancomycin HCl 25 MG/ML Oral PO SCH ×4 (00:08→17:26)
[2020-04-13 05:54] LABS: Anion Gap 9 mmol/L (10-20); BUN (Urea Nitrogen) 15 mg/dL (9.8-20.1); Calc. Creatinine Clearance 57 mL/min (70-130); Calcium 7.4 mg/dL (7.8-10.44); Carbon Dioxide 24 mmol/L (23-31); Chloride 110 mmol/L (98-107); Estimated GFR-MDRD 56; Glucose 151 mg/dL (80-115); Potassium 4.2 mmol/L (3.5-5.1); Sodium 139 mmol/L (136-145)
[2020-04-13 06:11] LABS: Hemoglobin 8.6 g/dL (12.0-16.0); Mean Corpuscular HGB CONC 32.5 g/dL (32.0-36.0); Mean Corpuscular Hemoglobin 29.2 pg (27.0-31.0); Mean Corpuscular Volume 89.9 fL (78.0-98.0); Mean Platelet Volume 8.9 fL (7.4-10.4); Platelet Count 117 thou/uL (130-400); RBC Distribution Width 12.4 % (11.5-14.5); Red Blood Cell (RBC) Count 2.95 mill/uL (4.20-5.40); White Blood Cell (WBC) Count 2.3 thou/uL (4.8-10.8)
[2020-04-13 08:14] LABS: Anisocytosis SLIGHT = 6-15 cells (100X) (0-5/hpf); Band 3 % (5-11); Lymphocytes 59 % (21-51); MDiff Complete? YES; Monocytes 17 % (0-10); Neutrophil 21 % (42-75)
[2020-04-13] MEDS: Sodium Chloride 0.45% 1,000 ML IV SCH ×2 (08:29→17:30)
[2020-04-13] MEDS: Voriconazole 50 MG TAB PO SCH ×2 (09:03→21:46)
[2020-04-13] MEDS: Saccharomyces boulardii 250 MG CAP PO SCH (09:03)
[2020-04-13] MEDS: Gabapentin 300 MG CAP PO SCH ×3 (09:03→21:37)
[2020-04-13 11:18] LABS: Ref Lab Test Ordered VORICONAZOLE SERUM; Reference Lab Name LABCORP
[2020-04-13] MEDS ORDERED: Fentanyl 100 MCG/2 ML VIAL ONE (13:35)
[2020-04-13] MEDS ORDERED: Ketamine 50 MG/ML (10ML VIAL) ONE (13:36)
[2020-04-13] MEDS ORDERED: Iopamidol 50 ML FS ONE (13:38)
[2020-04-13] MEDS ORDERED: diphenhydrAMINE 50 MG/ML VIAL ONE (15:30)
[2020-04-13] MEDS ORDERED: Dexamethasone 20 MG/5 ML VIAL ONE (15:30)
[2020-04-13] MEDS ORDERED: EPHEDRINE 25 MG/5 ML SYRINGE ONE (15:30)
[2020-04-13] MEDS ORDERED: PROPOFOL 200 MG/20 ML VIAL ONE (15:30)
[2020-04-13] MEDS ORDERED: Ondansetron PF 4 MG/2 ML Vial ONE (15:30)
--- NOTE | 2020-04-13 16:54 | RAD ---
IVP RETROGRADE: History: Stent placement. Comparison: CT stone protocol 04-08-2020 FINDINGS: There are bilateral double J ureteral stents in place. Single image was obtained. IMPRESSION: Fluoroscopy for procedural purposes. POS: HOME
[2020-04-13] MEDS: VENCLEXTA PO SCH (17:27)
[2020-04-13] MEDS: Micafungin 100 MG in Sodium Chloride 0.9% 100 ML IVPB SCH (17:27)
[2020-04-13] MEDS ORDERED: Morphine 4 MG/ML VIAL SLOW IVP PRN (17:55)
--- NOTE | 2020-04-13 17:58 | PDOC.HOSPP ---
- Subjective Encounter Date: 04/13/20 Encounter Time: 17:50 Subjective: f/u for Fungal UTI with ureteral stent exchange today per Urology. c/o vaginal pain this pm. - Objective Vital Signs & Weight: Vital Signs (12 hours) Temp Pulse Resp BP Pulse Ox 04/13/20 16:44 98.1 F 90 18 128/62 91 L 04/13/20 08:01 98.8 F 79 19 110/62 94 L Weight Admit Weight 144 lb Weight 144 lb 8 oz I&O: 04/12/20 04/13/20 04/14/20 06:59 06:59 06:59 Intake Total 1600 1440 Balance 1600 1440 Result Diagrams: 04/13/20 05:08 04/13/20 05:08 Additional Labs: Accuchecks 04/13/20 04/13/20 04/13/20 16:15 12:14 05:34 POC Glucose 149 H 132 H 156 H 04/12/20 19:52 POC Glucose 155 H Microbiology 04/10/20 10:30 Stool - Loose Stool Lactoferrin - Final 04/10/20 10:30 Stool - Loose Rapid Parasite Screen - Final 04/10/20 10:30 Stool - Loose Campylobacter Antigen Assay - Final 04/10/20 10:30 Stool - Loose Shiga Toxin Test - Final 04/10/20 10:30 Stool C. difficile GDH Antigen & Toxins - Final 04/08/20 14:36 Urine voided Urine Culture - Final Presumptive Martha Krusei 04/10/20 22:21 Venous blood - Right Hand Blood Culture - Preliminary Specimen has been received and culture in progress. No Growth to date. 04/10/20 22:19 Venous blood - Right Arm Blood Culture - Preliminary Specimen has been received and culture in progress. No Growth to date. Hospitalist ROS - Medication Medications: Active Medications Generic Name Dose Route Start Last Admin Trade Name Freq PRN Reason Stop Dose Admin Acetaminophen 650 mg 04/08/20 18:20 04/10/20 20:47 Tylenol PO 650 mg Q4H PRN Administration Headache/Fever/Mild Pain (1-3) Dextrose/Water 25 gm 04/09/20 17:04 04/09/20 17:11 Dextrose 50% IVP 25 gm PRN PRN Administration HYPOGLYCEMIA PROTOCOL Ezetimibe 10 mg 04/08/20 21:00 04/12/20 21:36 Zetia PO 10 mg HS CORIN Administration Gabapentin 600 mg 04/08/20 21:00 04/13/20 17:28 Neurontin PO Not Given TID CORIN Sodium Chloride 1,000 mls @ 100 mls/hr 04/10/20 10:15 04/13/20 17:30 1/2 Normal Saline IV 1,000 mls .Q10H CORIN Administration Micafungin Sodium 100 mg/ 100 mls @ 100 mls/hr 04/10/20 17:00 04/13/20 17:27 Sodium Chloride IVPB 100 mls 1700 CORIN Administration Insulin Human Regular 0 units 04/09/20 17:04 04/12/20 17:23 Humulin R SC 5 unit .MILD SLIDING PRN Administration MILD SLIDING SCALE Protocol Venclexta Patient's 0 each 04/09/20 12:00 04/13/20 17:27 Home Medication PO 1 each 1200 CORIN Administration Saccharomyces Boulardii 250 mg 04/13/20 09:00 04/13/20 09:03 Florastor PO 250 mg DAILY CORIN Administration Sertraline HCl 100 mg 04/12/20 09:00 04/13/20 09:03 Zoloft PO 100 mg DAILY CORIN Administration Sodium Chloride 10 ml 04/09/20 21:00 04/13/20 08:30 Flush - Normal Saline IVF Not Given Q12HR CORIN Tizanidine HCl 2 mg 04/09/20 10:27 04/12/20 22:57 Zanaflex PO 2 mg TID PRN Administration Muscle Spasm Vancomycin HCl 125 mg 04/11/20 18:00 04/13/20 17:26 First Vancomycin PO 125 mg Q6HR CORIN Administration Voriconazole 200 mg 04/09/20 21:00 04/13/20 09:03 Vfend PO 200 mg Q12HR CORIN Administration - Exam General Appearance: NAD, awake alert Eye: PERRL, anicteric sclera ENT: normocephalic atraumatic, no oropharyngeal lesions Neck: supple, symmetric, no JVD, no thyromegaly Heart: RRR, no gallops, no rubs, normal peripheral pulses Heart - other findings: S1, S2 Respiratory: CTAB, no wheezes, no rales, no ronchi, normal chest expansion Gastrointestinal: soft, non-distended, normal bowel sounds Gastrointestinal - other findings: mild TTP in suprapubic region Extremities: no cyanosis, no clubbing, no edema Skin: normal turgor, no lesions Neurological: cranial nerve grossly intact, no new deficit Musculoskeletal: normal tone, normal strength Psychiatric: normal affect, A&O x 3 Hosp A/P (1) Martha UTI Code(s): B37.49 - OTHER UROGENITAL CANDIDIASIS Status: Acute Plan: Continue Voriconazole/Micafungin, plan for outpt Voriconazole (2) Clostridium difficile diarrhea Code(s): A04.72 - ENTEROCOLITIS D/T CLOSTRIDIUM DIFFICILE, NOT SPCF RECUR Status: Acute Plan: Continue Vancomycin po (3) Acute kidney injury Code(s): N17.9 - ACUTE KIDNEY FAILURE, UNSPECIFIED Status: Acute (4) Chronic lymphocytic leukemia (CLL), B-cell Code(s): C91.10 - CHRONIC LYMPHOCYTIC LEUK OF B-CELL TYPE NOT ACHIEVE REMIS Status: Chronic - Plan plan discussed w/ family, continue antibiotics, social worker aide, out of bed/ ambulate, DVT proph w/SCDs Stable overall Resume Eliquis in am Continue Voriconazole/Micafungin OOB/ambulate Contiue Vancomycin po Add Florastor 250mg po daily AM lab: BMP, H/H Likely home in am
[2020-04-13] MEDS ORDERED: Morphine 2 MG/ML SYRINGE SLOW IVP SCH (18:00)
[2020-04-13] MEDS: Ezetimibe 10 MG TAB PO SCH (21:37)
[2020-04-13] MEDS: Insulin Regular 300 UNITS/3 ML VIAL SC PRN (21:41)
--- NOTE | 2020-04-13 21:45 | OP ---
DATE OF PROCEDURE: 04/13/2020 PREOPERATIVE DIAGNOSIS: Bilateral ureteral obstruction with indwelling stents in fungi area. POSTOPERATIVE DIAGNOSIS: Bilateral ureteral obstruction with indwelling stents in fungi area. PROCEDURE PERFORMED: Cystoscopy, bilateral stent removal and replacement. ANESTHESIA: General. INDICATIONS: Ms. Cervantes has had indwelling ureteral stents for bilateral ureteral obstruction resulting from lymphadenopathy caused by CLL. She has been admitted to the hospital this time with urinary tract infection. Cultures have grown fungal organisms. She is now on antibiotic therapy, because the stents were likely to be colonized. She is brought to the operating room for stent removal and replacement. DESCRIPTION OF PROCEDURE: The patient was given general anesthesia and IV antibiotics had been given earlier in the day. She was sterilely prepped and draped in the lithotomy position. Cystoscope was passed in the bladder. The right ureteral stent was grasped, brought out to the urethral meatus and a guidewire was passed through it. The stent was removed and then a new 6 x 24 double-J stent was passed over the guide wire and coiled in the renal pelvis and in the bladder as determined cystoscopically and fluoroscopically. The left ureteral stent was then grasped and brought out to the urethral meatus and guidewire was passed through it. Another 6 x 24 stent was passed over this guidewire and coiled in the left renal pelvis and in the bladder as determined cystoscopically and fluoroscopically. The patient tolerated the procedure well. She was transported from the operating recovery to recovery room in stable condition. COMPLICATION: None. ESTIMATED BLOOD LOSS: Minimal. Job ID: [id number]
[2020-04-13] MEDS: tiZANidine HCl 4 MG TAB PO PRN (21:46)
[2020-04-14] MEDS: Vancomycin HCl 25 MG/ML Oral PO SCH ×4 (00:33→17:18)
[2020-04-14] MEDS ORDERED: Insulin Glargine 30 UNITS in Pre-Filled Syringe 1 EACH SC SCH (02:15)
[2020-04-14] MEDS: Sodium Chloride 0.45% 1,000 ML IV SCH ×2 (03:26→15:12)
[2020-04-14 06:06] LABS: Hemoglobin 8.9 g/dL (12.0-16.0); Platelet Count 101 thou/uL (130-400)
[2020-04-14 06:21] LABS: Anion Gap 10 mmol/L (10-20); BUN (Urea Nitrogen) 21 mg/dL (9.8-20.1); Calc. Creatinine Clearance 51 mL/min (70-130); Calcium 7.7 mg/dL (7.8-10.44); Carbon Dioxide 22 mmol/L (23-31); Chloride 108 mmol/L (98-107); Estimated GFR-MDRD 49; Glucose 384 mg/dL (80-115); Sodium 135 mmol/L (136-145)
[2020-04-14] MEDS: Apixaban 5 MG TAB PO SCH ×2 (09:02→21:24)
[2020-04-14] MEDS: Voriconazole 50 MG TAB PO SCH ×2 (09:02→21:24)
[2020-04-14] MEDS: Saccharomyces boulardii 250 MG CAP PO SCH (09:02)
[2020-04-14] MEDS: Gabapentin 300 MG CAP PO SCH ×3 (09:02→21:24)
[2020-04-14] MEDS: VENCLEXTA PO SCH (12:27)
[2020-04-14] MEDS: Insulin Regular 300 UNITS/3 ML VIAL SC PRN ×2 (12:29→17:19)
--- NOTE | 2020-04-14 14:08 | PQF ---
BARTOLOME BAUTISTAJOAQUIN DO [id number] CLINICAL DOCUMENTATION IMPROVEMENT CLARIFICATION FORM: ICD-10 Updated PLEASE DO AN ADDENDUM TO THE PROGRESS NOTE WITH ANY DOCUMENTATION UPDATES OR ADDITIONS AND CARRY THROUGH TO DC SUMMARY. THANK YOU. DATE: 04/14/2020 ATTN:DR. Marixa ZARATE Please exercise your independent, professional judgment in responding to the clarification form. Clinical indicators are provided on the bottom of this form for your review. Please check appropriate box(es): [ ] Sepsis present on admission [ x ] Sepsis NOT present on admission [ ] Unable to determine Due to: Uti [ ] Not Due to Uti [ ] [ ] Septic Shock present on Admission [ ] Septic Shock NOT present on Admission [ ] Unable to determine [ x ] Localized infection without sepsis [ ] Other diagnosis [ ] Unable to determine For continuity of documentation, please document condition throughout progress notes and discharge summary. Thank You. CLINICAL INDICATORS - SIGNS / SYMPTOMS / LABS / RESULTS AND LOCATION IN MR 04/08 URINE CULTURE: PRESUMPTIVE BASIL KRUSEI WBC 3.9 > 2.8 > 3.8 > 2.4 > 2.6 > 2.5 > 2.3 BANDS 3 > 13 > 1 > 11 > 13 > 9 > 3 TEMP 04/10 100.5 > 100.0 > 101.6 04/10 EVENT (NASH) NURSE CALLED, REPORTED NEW ONSET DIARRHEA X 5 STOOLS AND FEVER. WILL GET SEPSIS WORKUP. 04/12 PN (TYREE) SHE HAD AN ENTEROCOCCAL UROSEPSIS IN JANUARY, AND NOW APPEARS TO HAVE FUNGAL UROSEPSIS. RISK: FUNGAL URINARY TRACT INFECTION, IMMUNOCOMPROMISED ( H&P/ALNAZEER) 04/08 TREATMENTS: ID CONSULT ( MANISH/ 04/09) STENT EXCHANGE/CYSTOSCOPY) 04/13 THANK YOU! ALLISON (This form is maintained as a part of the permanent medical record) 2014 [employer]. All Rights Reserved [email or web address]
[2020-04-14] MEDS: Micafungin 100 MG in Sodium Chloride 0.9% 100 ML IVPB SCH (17:17)
--- NOTE | 2020-04-14 18:07 | PDOC.HOSPP ---
- Subjective Encounter Date: 04/14/20 Encounter Time: 17:55 Subjective: f/u for fungal UTI with Martha krusei on Voriconazole/Micafungin s/p exchange of bilateral ureteral stents. Feels better overall and urine clearing today. - Objective Vital Signs & Weight: Vital Signs (12 hours) Temp Pulse Resp BP Pulse Ox 04/14/20 08:00 94 L 04/14/20 07:35 97.9 F 78 15 128/68 94 L Weight Admit Weight 144 lb Weight 144 lb 8 oz I&O: 04/13/20 04/14/20 04/15/20 06:59 06:59 06:59 Intake Total 1440 Balance 1440 Result Diagrams: 04/14/20 05:56 04/14/20 05:56 Additional Labs: Accuchecks 04/14/20 04/14/20 04/14/20 16:16 11:16 05:07 POC Glucose 302 H 359 H 413 H 04/14/20 04/14/20 04/13/20 03:23 00:32 20:45 POC Glucose 393 H 442 H 415 H Microbiology 04/10/20 10:30 Stool - Loose Stool Lactoferrin - Final 04/10/20 10:30 Stool - Loose Rapid Parasite Screen - Final 04/10/20 10:30 Stool - Loose Campylobacter Antigen Assay - Final 04/10/20 10:30 Stool - Loose Shiga Toxin Test - Final 04/10/20 10:30 Stool C. difficile GDH Antigen & Toxins - Final 04/08/20 14:36 Urine voided Urine Culture - Final Presumptive Martha Krusei 04/10/20 22:21 Venous blood - Right Hand Blood Culture - Preliminary Specimen has been received and culture in progress. No Growth to date. 04/10/20 22:19 Venous blood - Right Arm Blood Culture - Preliminary Specimen has been received and culture in progress. No Growth to date. Hospitalist ROS - Medication Medications: Active Medications Generic Name Dose Route Start Last Admin Trade Name Freq PRN Reason Stop Dose Admin Acetaminophen 650 mg 04/08/20 18:20 04/10/20 20:47 Tylenol PO 650 mg Q4H PRN Administration Headache/Fever/Mild Pain (1-3) Apixaban 5 mg 04/14/20 09:00 04/14/20 09:02 Eliquis PO 5 mg BID CORIN Administration Dextrose/Water 25 gm 04/09/20 17:04 04/09/20 17:11 Dextrose 50% IVP 25 gm PRN PRN Administration HYPOGLYCEMIA PROTOCOL Ezetimibe 10 mg 04/08/20 21:00 04/13/20 21:37 Zetia PO 10 mg HS CORIN Administration Gabapentin 600 mg 04/08/20 21:00 04/14/20 15:11 Neurontin PO 600 mg TID CORIN Administration Sodium Chloride 1,000 mls @ 100 mls/hr 04/10/20 10:15 04/14/20 15:12 1/2 Normal Saline IV 1,000 mls .Q10H CORIN Administration Micafungin Sodium 100 mg/ 100 mls @ 100 mls/hr 04/10/20 17:00 04/14/20 17:17 Sodium Chloride IVPB 100 mls 1700 CORIN Administration Insulin Human Regular 0 units 04/09/20 17:04 04/14/20 17:19 Humulin R SC 5 unit .MILD SLIDING PRN Administration MILD SLIDING SCALE Protocol Morphine Sulfate 4 mg 04/13/20 17:55 04/14/20 00:33 Morphine SLOW IVP 4 mg Q4H PRN Administration Moderate to Severe Pain (6-10) Venclexta Patient's 0 each 04/09/20 12:00 04/14/20 12:27 Home Medication PO 1 each 1200 CORIN Administration Saccharomyces Boulardii 250 mg 04/13/20 09:00 04/14/20 09:02 Florastor PO 250 mg DAILY CORIN Administration Sertraline HCl 100 mg 04/12/20 09:00 04/14/20 09:02 Zoloft PO 100 mg DAILY CORIN Administration Sodium Chloride 10 ml 04/09/20 21:00 04/14/20 09:02 Flush - Normal Saline IVF Not Given Q12HR CORIN Tizanidine HCl 2 mg 04/09/20 10:27 04/13/20 21:46 Zanaflex PO 2 mg TID PRN Administration Muscle Spasm Vancomycin HCl 125 mg 04/11/20 18:00 04/14/20 17:18 First Vancomycin PO 125 mg Q6HR CORIN Administration Voriconazole 200 mg 04/09/20 21:00 04/14/20 09:02 Vfend PO 200 mg Q12HR CORIN Administration - Exam General Appearance: NAD, awake alert Eye: PERRL, anicteric sclera ENT: normocephalic atraumatic, no oropharyngeal lesions Neck: supple, symmetric, no JVD, no thyromegaly, no lymphadenopathy Heart: RRR, no murmur, no gallops, no rubs, normal peripheral pulses Heart - other findings: S1, S2 Respiratory: CTAB, no wheezes, no rales, no ronchi, normal chest expansion Gastrointestinal: soft, non-tender, non-distended, normal bowel sounds Extremities: no cyanosis, no clubbing, no edema Skin: normal turgor, no lesions Neurological: cranial nerve grossly intact, no new deficit Musculoskeletal: normal tone, normal strength, no muscle wasting Psychiatric: normal affect, A&O x 3 Hosp A/P (1) Martha UTI Code(s): B37.49 - OTHER UROGENITAL CANDIDIASIS Status: Acute Plan: Continue Voriconazole for outpt RX (2) Clostridium difficile diarrhea Code(s): A04.72 - ENTEROCOLITIS D/T CLOSTRIDIUM DIFFICILE, NOT SPCF RECUR Status: Acute Plan: Resolving, continue Vancomycin po (3) Acute kidney injury Code(s): N17.9 - ACUTE KIDNEY FAILURE, UNSPECIFIED Status: Acute Plan: Improved, continue to monitor renal function, s/p bilateral ureteral stent exchange (4) Chronic lymphocytic leukemia (CLL), B-cell Code(s): C91.10 - CHRONIC LYMPHOCYTIC LEUK OF B-CELL TYPE NOT ACHIEVE REMIS Status: Chronic - Plan continue antibiotics, psychotherapist social worker, out of bed/ambulate, DVT proph w/SCDs Stable overall Resume Eliquis in am Continue Voriconazole/Micafungin OOB/ambulate Contiue Vancomycin po Add Florastor 250mg po daily Likely home in am
[2020-04-14] MEDS: Ezetimibe 10 MG TAB PO SCH (21:24)
[2020-04-14] MEDS: tiZANidine HCl 4 MG TAB PO PRN (21:39)
[2020-04-15] MEDS: Vancomycin HCl 25 MG/ML Oral PO SCH ×2 (00:44→05:05)
[2020-04-15] MEDS: Sodium Chloride 0.45% 1,000 ML IV SCH ×2 (00:48→11:35)
[2020-04-15] MEDS: Insulin Regular 300 UNITS/3 ML VIAL SC PRN (05:06)
[2020-04-15] MEDS: Saccharomyces boulardii 250 MG CAP PO SCH (07:58)
[2020-04-15] MEDS: Voriconazole 50 MG TAB PO SCH (07:59)
[2020-04-15] MEDS: Apixaban 5 MG TAB PO SCH (07:59)
[2020-04-15] MEDS: Gabapentin 300 MG CAP PO SCH (07:59)
[2020-04-15 12:25] VITALS: BP 112/64; TEMP 98.1
--- NOTE | 2020-04-16 00:04 | DIS ---
DATE OF ADMISSION: 04/08/2020 DATE OF DISCHARGE: 04/15/2020 DISCHARGE DIAGNOSES: 1. Urinary tract infection with Martha Krusei species. 2. Clostridium difficile diarrhea, resolving. 3. Acute kidney injury, resolved. 4. Chronic lymphocytic leukemia, B-cell type. 5. Obstructive uropathy status post bilateral ureteral stent exchange, 04/13/2020. CONSULTATIONS: 1. Dr. Allison with Urology Service. 2. Dr. Simmons with Infectious Disease Service. PERTINENT LABORATORY AND X-RAY FINDINGS: Creatinine ranged between 0.96 to 1.235. Estimated GFR ranged between 39 to 58. Lactic acid level 1.3. CBC showed a white blood cell count ranged between 2.3 to 3.9, hemoglobin ranged between 8.6 to 10.9. Urine culture dated 04/08/2020, showed 75 to 100,000 colonies of Martha Krusei. Clostridium difficile antigen 04/10/2020, antigen positive, toxin negative. Stool culture dated 04/10/2020, showed normal enteric ge. Campylobacter antigen and Shigella toxin negative, 04/10/2020. Blood cultures x2 dated 04/10/2020, showed no growth at 48 hours. Stool lactoferrin dated 04/10/2020, positive. CT of the abdomen and pelvis dated 04/08/2020, showed bilateral ureteral stents in place with mild bilateral hydronephrosis, slightly greater on the left. Improvement in aortocaval and mesenteric lymphadenopathy. Portable chest x-ray dated 04/10/2020, showed no acute cardiopulmonary process. HOSPITAL COURSE: The patient was initially admitted to the medical floor after presenting with dysuria and urinary tract infection confirmed with Martha species. The patient was placed on voriconazole in addition to micafungin and received general supportive management including IV fluids. The patient was evaluated by the Urology Service, undergoing replacement of bilateral ureteral stents on 04/13/2020. The patient clinically stabilized with the ureteral stent exchange and overall remained clinically stable. Current plans are to continue voriconazole on an outpatient basis after discharge. I have examined the patient at the time of discharge and discussed followup instructions. The patient verbalized understanding and agreement, ready for discharge on 04/15/2020. DISCHARGE MEDICATIONS: 1. Voriconazole 200 mg p.o. b.i.d. 2. Zanaflex 2 mg p.o. t.i.d. p.r.n. 3. Eliquis 5 mg p.o. b.i.d. 4. Venclexta 400 mg p.o. daily. 5. Zoloft 100 mg p.o. daily. 6. Crestor 40 mg p.o. at bedtime. 7. Nitroglycerin 0.4 mg sublingually q.5 minutes p.r.n. chest pain. 8. Claritin 10 mg p.o. daily. 9. Glargine insulin. 10. Neurontin 600 mg p.o. t.i.d. 11. Zetia 10 mg p.o. at bedtime. 12. Exenatide 2 mg subcutaneously q.7 days. FOLLOWUP: The patient may follow up with her primary care provider, Dr. Olivares. The patient will follow up with Dr. Jerry Simmons. CONDITION ON DISCHARGE: Stable. ACTIVITY: Ad-darion. DIET: ADA. CODE STATUS: Full. DISPOSITION: Home on 04/15/2020. TIME SPENT: Total time preparing and coordinating discharge, 34 minutes. Job ID: [id number]
== END 2020-04-15 14:33 | disposition home or self-care (01) | DRG 660 ==
LOC: ERS 13:31 → T4-B 16:17
PROVIDERS: ADMIT Internal Medicine; ATTEND Internal Medicine
PROC: 0T788DZ Dilation of Bilateral Ureters with Intraluminal Device, Via Natural or Artificial Opening Endoscopic (ICD-10-PCS; principal; 2020-04-13)
PROC: BT14ZZZ Fluoroscopy of Kidneys, Ureters and Bladder (ICD-10-PCS; 2020-04-13)
PROC: 0TP98DZ Removal of Intraluminal Device from Ureter, Via Natural or Artificial Opening Endoscopic (ICD-10-PCS; 2020-04-13)
PROC: 0TP98DZ Removal of Intraluminal Device from Ureter, Via Natural or Artificial Opening Endoscopic (ICD-10-PCS; 2020-04-13)
DX: T83.593A Infection and inflammatory reaction due to other urinary stents, initial encounter (principal); N17.9 Acute kidney failure, unspecified; A04.72 Enterocolitis due to Clostridium difficile, not specified as recurrent; C91.10 Chronic lymphocytic leukemia of B-cell type not having achieved remission; B37.41 Candidal cystitis and urethritis; N13.9 Obstructive and reflux uropathy, unspecified; M79.7 Fibromyalgia; K21.9 Gastro-esophageal reflux disease without esophagitis; E78.5 Hyperlipidemia, unspecified; E78.00 Pure hypercholesterolemia, unspecified; G89.29 Other chronic pain; M54.9 Dorsalgia, unspecified; M25.519 Pain in unspecified shoulder; G43.909 Migraine, unspecified, not intractable, without status migrainosus; F41.9 Anxiety disorder, unspecified; F32.9 Major depressive disorder, single episode, unspecified; I95.9 Hypotension, unspecified; R31.9 Hematuria, unspecified; Y83.1 Surgical operation with implant of artificial internal device as the cause of abnormal reaction of the patient, or of later complication, without mention of misadventure at the time of the procedure; E11.649 Type 2 diabetes mellitus with hypoglycemia without coma; Z90.49 Acquired absence of other specified parts of digestive tract; Z90.710 Acquired absence of both cervix and uterus; Z98.51 Tubal ligation status; Z88.1 Allergy status to other antibiotic agents; Z88.0 Allergy status to penicillin; Z88.8 Allergy status to other drugs, medicaments and biological substances; Z79.899 Other long term (current) drug therapy; Z79.01 Long term (current) use of anticoagulants; Z79.4 Long term (current) use of insulin
CPT/HCPCS: 36415; 36416; 71045; 74176; 74420; 80048; 80053; 81003; 81015; 83605; 83630; 85014; 85018; 85025; 85049; 87040; 87045; 87046; 87086; 87324; 87328; 87329; 87427; 87449; 87493; 93005; C1758; C1769; J1100; J1200; J1815; J2185; J2248; J2270; J2405; J2704; J3010; J3490; Q9967

== ENCOUNTER 2020-05-01 06:52 | Outpatient (CLI) | payer MEDICARE, MEDICAID, OTHER ==
[2020-05-01 13:35] LABS: Hemoglobin 9.4 g/dL (12.0-16.0); Mean Corpuscular HGB CONC 31.5 g/dL (32.0-36.0); Mean Corpuscular Hemoglobin 28.2 pg (27.0-31.0); Mean Corpuscular Volume 89.5 fL (78.0-98.0); Mean Platelet Volume 8.4 fL (7.4-10.4); Platelet Count 330 thou/uL (130-400); RBC Distribution Width 12.8 % (11.5-14.5); Red Blood Cell (RBC) Count 3.33 mill/uL (4.20-5.40); White Blood Cell (WBC) Count 2.5 thou/uL (4.8-10.8)
[2020-05-01 13:57] LABS: Anion Gap 12 mmol/L (10-20); BUN (Urea Nitrogen) 24 mg/dL (9.8-20.1); Calc. Creatinine Clearance 0 mL/min (70-130); Calcium 7.6 mg/dL (7.8-10.44); Carbon Dioxide 26 mmol/L (23-31); Chloride 103 mmol/L (98-107); Estimated GFR-MDRD 34; Glucose 202 mg/dL (80-115); Potassium 3.5 mmol/L (3.5-5.1); Sodium 137 mmol/L (136-145)
[2020-05-01 14:26] LABS: Bacteria/HPF 4+ HPF (None Seen); Bilirubin Negative (Negative); Blood, Urine 2+ (Negative); Clarity Extra Turbid (Clear); Glucose, Urine (Dipstick) Normal (Negative); Leukocyte 500 Leu/uL (Negative); Nitrite 1+ (Negative); Protein, Urine (Dipstick) 300 mg/dL (Neg-Trace); RBC/HPF Greater than 50 HPF (0-3); Squamous Epithelial 0-3 HPF (0-3); Urobilinogen Normal mg/dL (Less than 2); WBC/HPF Greater than 50 HPF (0-3)
[2020-05-02 12:16] LABS: SARS-CoV-2 MS2 Positive; SARS-CoV-2 N Gene Negative; SARS-CoV-2 S Gene Negative; SARS-CoV-2 orf1ab Negative
== END 2020-05-01 06:53 | disposition home or self-care (01) ==
LOC: LABBT 06:52
PROVIDERS: ATTEND Urology
DX: Z01.812 Encounter for preprocedural laboratory examination (principal); Z11.59 Encounter for screening for other viral diseases; N32.89 Other specified disorders of bladder; N13.30 Unspecified hydronephrosis
CPT/HCPCS: 80048; 81001; 85027; 87077; 87086; 87186; U0003; 87635

== ENCOUNTER 2020-05-03 13:26 | Inpatient (IN) | payer MEDICARE, MEDICAID, OTHER ==
[2020-05-03 13:57] LABS: Hemoglobin 8.7 g/dL (12.0-16.0); Mean Corpuscular HGB CONC 31.6 g/dL (32.0-36.0); Mean Corpuscular Volume 88.7 fL (78.0-98.0); Platelet Count 313 thou/uL (130-400); RBC Distribution Width 13.2 % (11.5-14.5)
--- NOTE | 2020-05-03 14:19 | RAD ---
Exam: Chest one view HISTORY:Sepsis. Comparison: 04/10/2020 FINDINGS: Lines and tubes: Stable left-sided Mediport Cardiac silhouette: Normal Aorta: Stable at sclerosis Pulmonary vessels: Normal Costophrenic angles: Clear LUNGS: No masses or consolidation. Pneumothorax: None Osseous abnormalities: None IMPRESSION: No acute cardiopulmonary process.
[2020-05-03 14:21] LABS: Bacteria/HPF 4+ HPF (None Seen); Bilirubin Negative (Negative); Blood, Urine 2+ (Negative); Clarity Extra Turbid (Clear); Glucose, Urine (Dipstick) Normal (Negative); Leukocyte 500 Leu/uL (Negative); Nitrite Negative (Negative); Protein, Urine (Dipstick) 300 mg/dL (Neg-Trace); RBC/HPF Greater than 50 HPF (0-3); Squamous Epithelial None Seen HPF (0-3); Urobilinogen Normal mg/dL (Less than 2); WBC/HPF Greater than 50 HPF (0-3)
[2020-05-03 14:24] LABS: Band 9 % (5-11); Lymphocytes 31 % (21-51); MDiff Complete? YES; Metamyelocyte 1 % (0-0); Monocytes 36 % (0-10); Neutrophil 23 % (42-75); Ovalocytes SLIGHT = 2-5 cells (100X) (0-1/hpf); Platelet Morphology Comment Appears Adequate; Polychromasia SLIGHT = 2-3 cells (100X) (0-2/hpf); Schistocytes SLIGHT = 2-5 cells (100X) (0-1/hpf); Tear Drops SLIGHT = 2-5 cells (100X) (0-1/hpf); Vacuoles SLIGHT
[2020-05-03] MEDS ORDERED: Vancomycin 1 GM/200 ML BAG ONE (14:28)
[2020-05-03 14:29] LABS: ALT (SGPT) 8 U/L (8-55); AST (SGOT) 22 U/L (5-34); Albumin 2.6 g/dL (3.4-4.8); Alkaline Phosphatase 1264 U/L (40-110); Anion Gap 13 mmol/L (10-20); BUN (Urea Nitrogen) 45 mg/dL (9.8-20.1); Bilirubin, Total 0.8 mg/dL (0.2-1.2); Calc. Creatinine Clearance 0 mL/min (70-130); Carbon Dioxide 21 mmol/L (23-31); Chloride 101 mmol/L (98-107); Estimated GFR-MDRD 21; Globulin 2.6 g/dL (2.4-3.5); Glucose 358 mg/dL (80-115); Potassium 4.1 mmol/L (3.5-5.1); Protein, Total 5.2 g/dL (6.0-8.3); Sodium 131 mmol/L (136-145)
[2020-05-03] MEDS ORDERED: Aztreonam 2 GM in Sodium Chloride 0.9% 100 ML IVPB SCH (14:45)
[2020-05-03] MEDS ORDERED: Fentanyl 100 MCG/2 ML VIAL ONE (14:57)
--- NOTE | 2020-05-03 16:26 | CT ---
CT ABDOMEN NONCONTRAST CT PELVIS NONCONTRAST: (Urolithiasis protocol) DATE: 05/03/2020 HISTORY: 69-year-old female with abdominal pain and fever COMPARISON: 04/08/2020 TECHNIQUE: IV injection of iodinated contrast media: None Oral contrast media: None FINDINGS: Other than for urolithiasis, the lack of IV and oral contrast limits the evaluation. Bilateral ureteral stents remain, with right upper pigtail loop in right renal pelvis and left upper pigtail loop in left upper pole calyx, and lower pigtail loops within the urinary bladder. However, there is worsening of bilateral hydroureteronephrosis, which is now moderate. Diffuse moderate-severe mural thickening of the urinary bladder is again noted. Circumferential scar or edema fluid in presacral space and around the issue rectal fossa are again no franklin. The ill-defined soft tissue density material in the retroperitoneum, a mild amount surrounding the ab dominal aorta, and a moderate amount surrounding the common iliac arteries, is largely unchanged. However, the previously described left para-aortic retroperitoneal lymph node measuring 2 cm at the L 3-4 level is currently impression 1.5 cm, smaller. The santo mesentery and soft tissue density material at the root of the mesentery, are again noted. M isty mesentery appears slightly worse now. No major interval change in splenomegaly. Heavy atherosclerotic callus patient of abdominal aorta and many of its branches. Within the limitations of a noncontrast scan, no gross abnormality of liver, pancreas, or adrenals. Diffuse mild to moderate anasarca is slightly worse now. No pleural effusion, small bowel dilation, or pneumoperitoneum. IMPRESSION: Interval worsening of now moderate right lateral hydroureteronephrosis is evidence for dysfunction of bilateral ureteral stents.
[2020-05-03 16:59] LABS: Lactic Acid 2.1 mmol/L (0.5-2.2)
[2020-05-03] MEDS ORDERED: Pharmacy to Dose AZTREONAM IVPB PRN (18:33)
[2020-05-03] MEDS ORDERED: Insulin Regular 300 UNITS/3 ML VIAL SC PRN (18:33)
[2020-05-03] MEDS ORDERED: Dextrose 50% Abboject 50 ML SYRINGE SLOW IVP PRN (18:33)
[2020-05-03] MEDS ORDERED: Dextrose 5% in Water 1,000 ML IV PRN (18:33)
[2020-05-03] MEDS ORDERED: Calcium Carbonate 500 MG ChewTAB PO PRN (18:37)
[2020-05-03] MEDS ORDERED: Ondansetron PF 4 MG/2 ML Vial IVP PRN (18:37)
[2020-05-03] MEDS ORDERED: Ondansetron ODT 4 MG TAB PO PRN (18:37)
[2020-05-03] MEDS ORDERED: Acetaminophen 650 MG Suppository PR PRN (18:37)
[2020-05-03] MEDS ORDERED: Insulin Glargine 10 UNITS in Pre-Filled Syringe 1 EACH SC SCH (19:15)
[2020-05-03] MEDS ORDERED: traMADol HCl 50 MG TAB PO PRN (20:24)
[2020-05-03] MEDS: Acetaminophen/Codeine 30-300mg Tablet PO PRN (20:37)
[2020-05-03] MEDS: Sodium Chloride 0.9% 1,000 ML IV SCH (20:39)
[2020-05-03] MEDS: Saccharomyces boulardii 250 MG CAP PO SCH (20:52)
[2020-05-03] MEDS: Albumin 25% 25 GM/100 ML BOT IVPB SCH (20:54)
[2020-05-03] MEDS: Acetaminophen 325 MG TAB PO PRN (20:54)
[2020-05-03] MEDS ORDERED: Insulin Glargine 20 UNITS in Pre-Filled Syringe 1 EACH SC SCH (21:00)
[2020-05-03 21:19] VITALS: BMI 25.4
[2020-05-03] MEDS: Vancomycin HCl 25 MG/ML Oral PO SCH (23:45)
[2020-05-04] MEDS: Acetaminophen/Codeine 30-300mg Tablet PO PRN ×2 (00:38→04:18)
[2020-05-04] MEDS: Acetaminophen 325 MG TAB PO PRN ×2 (00:38→08:52)
[2020-05-04 05:16] LABS: ALT (SGPT) Less than 7 U/L (8-55); AST (SGOT) 20 U/L (5-34); Albumin 2.5 g/dL (3.4-4.8); Alkaline Phosphatase 1206 U/L (40-110); Anion Gap 10 mmol/L (10-20); BUN (Urea Nitrogen) 49 mg/dL (9.8-20.1); Bilirubin, Total 0.6 mg/dL (0.2-1.2); Calc. Creatinine Clearance 27 mL/min (70-130); Calcium 7.6 mg/dL (7.8-10.44); Carbon Dioxide 23 mmol/L (23-31); Chloride 104 mmol/L (98-107); Estimated GFR-MDRD 22; Globulin 2.3 g/dL (2.4-3.5); Glucose 270 mg/dL (80-115); Magnesium 2.1 mg/dL (1.6-2.6); Potassium 4.1 mmol/L (3.5-5.1); Protein, Total 4.8 g/dL (6.0-8.3); Sodium 133 mmol/L (136-145)
[2020-05-04 05:48] LABS: Band 5 % (5-11); Hemoglobin 7.9 g/dL (12.0-16.0); Lymphocytes 33 % (21-51); MDiff Complete? YES; Mean Corpuscular HGB CONC 30.3 g/dL (32.0-36.0); Mean Corpuscular Hemoglobin 26.8 pg (27.0-31.0); Mean Corpuscular Volume 88.5 fL (78.0-98.0); Mean Platelet Volume 8.9 fL (7.4-10.4); Monocytes 27 % (0-10); Neutrophil 35 % (42-75); Nucleated RBC 1 % (0); Platelet Count 287 thou/uL (130-400); Platelet Morphology Comment Appears Adequate; RBC Distribution Width 13.1 % (11.5-14.5); Red Blood Cell (RBC) Count 2.96 mill/uL (4.20-5.40); White Blood Cell (WBC) Count 3.5 thou/uL (4.8-10.8)
[2020-05-04] MEDS: Albumin 25% 25 GM/100 ML BOT IVPB SCH ×3 (05:57→22:02)
[2020-05-04] MEDS: Vancomycin HCl 25 MG/ML Oral PO SCH ×3 (05:58→20:03)
--- NOTE | 2020-05-04 06:05 | HP ---
PRIMARY CARE PHYSICIAN: Ernie at the [facility]. UROLOGIST: Steven Weston MD ONCOLOGIST: Liang Cantu MD CHIEF COMPLAINT: General weakness, fever, abdominal pain, nausea, vomiting. HISTORY OF PRESENT ILLNESS: The patient is a 69-year-old female with past medical history significant for recurrent UTIs with bilateral stents in place, CLL currently on chemo treated by Dr. Cantu, cervical cancer, diabetes 2, coronary artery disease, who presents to the ER with the above complaint. The patient reports over the last several days she has developed some abdominal pain and cramping with associated nausea, vomiting, diarrhea and generalized weakness. She reports having a fever as well. She reports a nonproductive cough. She denies any shortness of breath or chest pain. She denies any headache or neck stiffness or any focal deficits. She denies any blood or mucus in the stools. She is scheduled to have her bilateral stents removed next week, so she has been swabbed for COVID, that was done Monday and that report is still pending. The patient was also recently discharged from the hospital on 04/15. The final diagnosis was UTI with Martha Krusei species, C. diff, and TEODORO. She was discharged home on oral antifungals and oral vancomycin. She reports that she completed the oral antifungals on and she reports that she is currently taking the vancomycin orally and diarrhea has improved. Given her symptoms, her family members recommended that she come into the ER today. In the ER, the present presented febrile with a temperature of 102.7. She was tachycardic with a heart rate 95, and she was tachypneic with a respiratory rate of 34, and her pain scale was 10/10. EKG was sinus rhythm. Her troponins are negative. Her chest x-ray was negative. CT of the abdomen was positive for moderate right lateral hydronephrosis. Her lactic acid was 2.3. Her WBCs were 3.0. Her urine was turbid, had 500 leukocytes, wbc's greater than 50, and bacteria 4+. The patient's sodium was 131. She had a glucose of 358. Her BUN was 45 and creatinine was 2.30. Her LFTs were unremarkable. She was given aztreonam and vancomycin IV piggyback, 1 L of normal saline and some fentanyl with some symptom improvement. PAST MEDICAL HISTORY: 1. Recurrent UTIs with bilateral stent placement in January. 2. CLL completed chemotherapy on Monday, followed by Dr. Cantu. 3. Cervical cancer. 4. CAD. 5. AR 2009. 6. Hyperlipidemia. 7. Diabetes 2 on insulin. 8. Fibromyalgia. 9. Migraines. 10. Anxiety and depression. SURGICAL HISTORY: 1. Bladder lift. 2. Bilateral ureteral stents. 3. Tubal ligation. 4. Appendectomy. 5. Hysterectomy. 6. Tonsils. 7. Back surgery x2. 8. Right breast lumpectomy. SOCIAL HISTORY: The patient lives alone. Has home health aide come to her home. She has no history of smoking, illicit drug use or alcohol intake. FAMILY HISTORY: Contributory for cancer. Contributory for cardiac disease. REVIEW OF SYSTEMS: All other review of systems are negative unless otherwise noted in the HPI. PHYSICAL EXAMINATION: VITAL SIGNS: Temperature 102.7, blood pressure 114/53, heart rate 95, respirations 34, SpO2 of 95% on room air. Pain scale 10/10. CONSTITUTIONAL: The patient was febrile, uncomfortable, and toxic in appearance. She was alert and oriented to person, place, and time. HEAD: Atraumatic, normocephalic. EYES: Extraocular muscles intact. PERRLA. Sclerae nonicteric. ENT: Pharynx was normal. Uvula was midline. Tonsils were normal. Mucous membranes are moist. She had multiple dental caries and dry mucous membranes. NECK: Full range of motion. Trachea midline. No meningeal signs. No cervical adenopathy. RESPIRATORY: Respirations upon exam were even and unlabored. Breath sounds were clear throughout. No rhonchi, wheezes or rales. CARDIOVASCULAR: Regular rate and rhythm. Normal heart sounds. No murmurs, rubs, or gallops. ABDOMEN: Abdomen was tender diffusely, moderate intensity. Mild distention present. Active bowel sounds. No peritoneal signs. No rigidity. No guarding or rebound. Rovsing sign was negative. BACK: Full range of motion. No central spinous tenderness. No CVA tenderness. EXTREMITIES: Upper extremities, strength normal. Full range of motion. Palpable radial pulses. Lower extremities, full range of motion. Normal strength. 2+ pitting edema. Palpable pedal pulses. NEUROLOGIC: Alert and oriented to person, place, and time. Normal gait. Cranial nerves 2 through 12 intact. No focal motor deficits. LABORATORIES AND DIAGNOSTICS: EKG, sinus rhythm 91. Troponin negative. Chest x-ray negative for any acute process. CT of the abdomen was positive for moderate right lateral hydronephrosis. Lactic acid was 2.3, repeat was 2.1. Sodium was 131, potassium 4.1, chloride 101, CO2 of 21, BUN 45, creatinine 2.30, glucose of 358. WBCs 3.0, hemoglobin 8.7, hematocrit 24.5, platelets 313. Albumin was 2.6, lipase was 13, bilirubin 0.8, alkaline phosphatase 1264, AST 22, ALT 8. Urine was turbid, leukocytes were 500, wbc's greater than 50, and bacteria 4+. IMPRESSION AND PLAN: 1. Acute cystitis. We will admit the patient to the telemetry floor inpatient status. Expected length of stay greater than two midnights. The patient presented febrile, tachycardic and tachypneic. CT of the abdomen was positive for right hydronephrosis. WBCs were 3, lactic acid was 2.3. Urine was consistent with urinary tract infection. The patient was given aztreonam and vancomycin in the ER. We will continue aztreonam and vancomycin IV piggyback. Dr. Weston was consulted in the ER and is going to see the patient tomorrow. We will make the patient n.p.o. after midnight. The patient has been off Eliquis since . We will continue IV fluid hydration gently. 2. Sepsis, likely related to #1. 3. Suspected COVID. The patient was swabbed on Monday. Results are pending. She was planning preop surgery for removal of her bilateral stents next week. We will reswab and place the patient on droplet precautions and await results. 4. Hyponatremia. The patient presented with sodium of 131, corrected for glucose of 358. The sodium was 135. 5. Acute kidney injury. The patient presented with a creatinine of 2.3, baseline is 1.0. She will receive 1 L of fluid in the ER. We will continue light gentle IV hydration with normal saline. 6. Metabolic acidosis. 7. Diabetes 2. The patient reports taking Toujeo 70 units at night and she is also on NovoLog 15 units with meals and Bydureon 2 mg subcu once a week. She has not been taking her insulin according to the patient and her family members. The patient presented with a blood glucose of 358. We will give 10 units of Lantus x1 moderate sliding scale with Accu-Cheks q.6. The patient is n.p.o. after midnight. 8. Chronic lymphocytic leukemia. 9. Frequent urinary tract infections. 10. No SCDs or pharmaco deep venous thrombosis prophylaxis. We will give Pepcid for GI prophylaxis. The patient is a full code. Her MPOA is Lynne Dominguez, number is [phone]. 11. Discussed the case with Dr. West. Job ID: [id number] MTDD
--- NOTE | 2020-05-04 08:43 | PDOC.EVN ---
Event Note - Event Note Event Note: Patient seen and examined for gen weakness with fever. Chart/labs reviewed. Previous records reviewed. Ill appearing. Lungs - dec AE at bases. Heart S1S2+. Imaging reviewed. Started Azactam for Sepsis. Dr Woods updated by ER physician. COVID pending. Will keep NPO past MN. I agree with the note, A and P by KENDRA Arguelles. Selected Entries 05/03/20 20:15 Temperature 99.8 F H Pulse Rate 106 H Blood Pressure 132/68 [Semi-Fowlers] Respiratory 32 H Rate O2 Sat by Pulse 100 Oximetry Oxygen Delivery Room Air Method
[2020-05-04] MEDS: Gabapentin 300 MG CAP PO SCH ×3 (08:52→20:00)
[2020-05-04] MEDS: Famotidine 20 MG TAB PO SCH (08:52)
[2020-05-04] MEDS: Saccharomyces boulardii 250 MG CAP PO SCH ×2 (08:52→20:00)
[2020-05-04] MEDS: Loratadine 10 MG TAB PO SCH (08:53)
[2020-05-04] MEDS ORDERED: Insulin Glargine 20 UNITS in Pre-Filled Syringe 1 EACH SC SCH (09:00)
[2020-05-04] MEDS ORDERED: Atenolol 25 MG TAB PO SCH (09:00)
[2020-05-04] MEDS: Sodium Chloride 0.9% 1,000 ML IV SCH (12:24)
[2020-05-04 14:55] LABS: SARS-CoV-2 MS2 Positive; SARS-CoV-2 N Gene Negative; SARS-CoV-2 S Gene Negative; SARS-CoV-2 orf1ab Negative
--- NOTE | 2020-05-04 19:40 | ULT ---
Bilateral renal ultrasound CLINICAL INDICATION: Hydronephrosis, acute renal insufficiency. COMPARISON: CT abdomen and pelvis on 05/03/2020 FINDINGS: Right kidney: Right kidney is not well seen due to shadowing, but there is evidence of mild to modera te right hydronephrosis. No right renal mass is seen.The right kidney measures 12 cm x 6 cm. Left kidney: Mild left hydronephrosis. There is no renal cortical thinning or obvious left renal mass seen.The left kidney measures 10.3 cm x 6 cm. Urinary bladder: Campos catheter in place, and the urinary bladder is completely decompressed. IMPRESSION: Bilateral hydronephrosis which was also seen on recent CT abdomen.
[2020-05-04] MEDS: Rosuvastatin 20 MG TAB PO SCH (20:00)
[2020-05-04] MEDS: Ezetimibe 10 MG TAB PO SCH (20:00)
[2020-05-04] MEDS: Insulin Glargine 10 UNITS in Pre-Filled Syringe 1 EACH SC SCH (20:16)
[2020-05-04] MEDS ORDERED: Sodium Chloride 0.9% 500 ML IV SCH (20:30)
[2020-05-04 21:16] LABS: Actual Bicarbonate (HCO3a) 17.9 mEq/L (22-28); CO2 Tension 49.5 mmHg (35.0-45.0); Calcium, Ionized (arterial) 1.16 mmol/L (1.12-1.30); Carboxyhemoglobin (COHb) 0.5 gm% (0.0-3.0); Hemoglobin (Hb) 9.3 g/dL (12.0-16.0); O2 Tension (PaO2), arterial 84.1 mmHg (> 80.0); Potassium - ABG Lab 3.94 mmol/L (3.70-5.30)
[2020-05-04 21:18] LABS: ALV-art Gradient 82.185 (0-20); Puncture Site LRA; pH, Arterial 7.18 (7.35-7.45)
[2020-05-04] MEDS ORDERED: Sodium Bicarb 50 MEQ/50 ML Abboject 8.4% SYRINGE IVP SCH (21:30)
[2020-05-04] MEDS ORDERED: Sodium Bicarbonate 150 MEQ in Dextrose 5% in Water 1,000 ML IV SCH (21:30)
[2020-05-04 21:49] LABS: Hemoglobin 6.8 g/dL (12.0-16.0); Mean Corpuscular HGB CONC 31.2 g/dL (32.0-36.0); Mean Corpuscular Volume 89.6 fL (78.0-98.0); Red Blood Cell (RBC) Count 2.42 mill/uL (4.20-5.40); White Blood Cell (WBC) Count 2.5 thou/uL (4.8-10.8)
[2020-05-04 21:50] LABS: Platelet Count 246 thou/uL (130-400); RBC Distribution Width 13.3 % (11.5-14.5)
[2020-05-04 22:06] LABS: Band 14 % (5-11); Hypochromia SLIGHT = 6-15 cells (100X) (0-5/hpf); Lymphocytes 16 % (21-51); MDiff Complete? YES; Monocytes 42 % (0-10); Neutrophil 28 % (42-75); Platelet Morphology Comment Appears Adequate
[2020-05-04 22:08] LABS: Anion Gap 11 mmol/L (10-20); BUN (Urea Nitrogen) 55 mg/dL (9.8-20.1); Calc. Creatinine Clearance 21 mL/min (70-130); Calcium 7.6 mg/dL (7.8-10.44); Carbon Dioxide 20 mmol/L (23-31); Chloride 106 mmol/L (98-107); Estimated GFR-MDRD 18; Glucose 208 mg/dL (80-115); Potassium 3.9 mmol/L (3.5-5.1); Sodium 133 mmol/L (136-145)
[2020-05-04 22:14] LABS: Troponin I 0.057 ng/mL (< 0.028)
--- NOTE | 2020-05-04 22:14 | CON ---
DATE OF CONSULTATION: 05/04/2020 REASON FOR CONSULTATION: Urinary tract infection, stents, and bacteremia. HISTORY OF PRESENT ILLNESS: A 69-year-old well known to me from prior visits, history of CLL treated with anti-CD20 monoclonal antibody. She had obstructive uropathy as well and had bilateral stents, has been started on chemotherapy by Dr. Cantu. She has had some complications related to urinary tract infections including E. faecalis and urosepsis. She was treated with vancomycin. She developed C. diff colitis, was given oral vancomycin and then, she had recurrence of dysuria and at this time, yeast was identified and this has a Martha krusei was identified, so she was switched to voriconazole and she responded well to treatment, but it took quite a few days. We had to treat her with micafungin in addition to voriconazole, but eventually she responded and it looks like she was scheduled to have the stent removed tomorrow, but then she unfortunately had to be admitted with sepsis. She came through the emergency room with fever, weakness, abdominal pain, and initial findings included BP 114/53, pulse 95, temperature 102.7, and O2 saturation 95 and she was initially found to be in moderate distress with pain in the abdominal area and this was diffusely tender. There is moderate intensity with some distention. Lungs are clear. Heart exam showed S1 and S2 with no murmurs. Other findings on admission are the white cell count 3.0, hemoglobin 8.7, and platelets 313 with 23% neutrophils and 9% bands. Sodium was 131 and creatinine 2.30, baseline is 0.99. The alkaline phosphatase was 1264 and albumin 2.6. Troponin less than 0.01. Urinalysis greater than 50 wbc's and rbc's and the COVID test was negative and now we have a gram-negative katie isolated in the blood, one out of two sets, likely the Proteus mirabilis retrieved from the urine. Just a few days ago, Proteus mirabilis was isolated from the urine culture and very likely to be the same organism, which has a broad susceptibility profile. Currently, Ms. Cervantes is somewhat apprehensive. She does not appear in acute distress. No headaches. No visual symptoms, sore throat, odynophagia, or dysphagia. A little bit nausea, but no vomiting. A little bit of cough, but no dyspnea or chest pain. Moderate abdominal pain, which is diffuse. She has a Campos catheter inserted and she has no focal neurological symptoms. PAST MEDICAL HISTORY: CLL, non-Hodgkin's lymphoma, obstructive uropathy due to retroperitoneal lymphadenopathy bypassed with stents bilaterally, episodes of invasive UTI with various organisms including E. faecalis as well as Martha krusei, type 2 diabetes, fibromyalgia, hypertension, cervical cancer. PAST SURGICAL HISTORY: Includes lumpectomy, bladder lift, appendectomy, and stent placement. SOCIAL HISTORY: Former smoker. She used to work as a cook. Disabled with her illness now. FAMILY HISTORY: Noncontributory. ALLERGIES: CEPHALEXIN, PENICILLIN, ASPIRIN, AND DIFLUCAN WITH A RASH. CURRENT MEDICATIONS: Include; 1. Tylenol. 2. Albumin. 3. Tenormin. 4. Aztreonam. 5. Tums. 6. Zetia. 7. Pepcid. 8. Neurontin. 9. Insulin. 10. Claritin. 11. Zofran. 12. Crestor. 13. Florastor. 14. Zoloft. 15. Ultram. 16. Oral vancomycin. PHYSICAL EXAMINATION: VITAL SIGNS: T-max 102.8 and now she is 97.2, blood pressure 95/52, pulse 83, respirations 20, and O2 saturation 99. GENERAL: Appears chronically ill, but in no acute distress. HEENT: Ocular movements conjugate. Somewhat pale conjunctivae. Oral cavity not remarkable. NECK: Supple. No jugular vein distention. LUNGS: Symmetric clear breath sounds. HEART: S1 and S2. Regular rate with a soft aortic murmur. ABDOMEN: Mildly distended and diffusely tender, but tyzo-ax-tohjdunbex tender. No ascites noted. No hepatosplenomegaly. No bladder distention. Campos catheter in place with cloudy urine in bag. EXTREMITIES: She is able to move extremities. No edema. Pulses 1+ in dorsalis pedis. Plantar responses are flexor. No clonus. NEUROLOGIC: She is awake. Follows commands. Speech is normal. Recollection is preserved. LABORATORY STUDIES: Followup white cell count 3.5, hemoglobin 7.9, and platelets 287. IMAGING: We have abdomen and pelvis CT and this shows worsening of moderate right lateral hydroureteronephrosis, which is evidence of dysfunction of stents. ASSESSMENT: 1. Chronic lymphocytic leukemia/lymphoma, status post anti-CD20 monoclonal antibody treatment with improvement. 2. Stents with recurrence of invasive urinary tract infection with definite evidence of obstructive features, probably the stents are plugged up, particularly the one on the right side. DISCUSSION: The organism is quite susceptible to various antimicrobials and I think aztreonam should be effective. Eventually, she could be transitioned to trimethoprim/sulfamethoxazole or ampicillin to hopefully transition to oral therapy for discharge planning. In view of the worsening hydronephrosis, one would have to verify the patency of the outflow tract after the stents are removed. She has a little bit of crackling in the left lung probably resulting from the bacteremia. Job ID: [id number] [facility]
--- NOTE | 2020-05-04 22:23 | CON ---
DATE OF CONSULTATION: REASON FOR CONSULT: CLL. HISTORY OF PRESENT ILLNESS: Ms. Cervantes is a 69-year-old female, who has stage I CLL. She is CD38 positive. She has been on Gazyva and venetoclax. In September of last year, she had extensive retroperitoneal lymphadenopathy causing bilateral hydronephrosis and had ureteral stent placement in November. She has been dealing with Enterococcus septicemia and Clostridium difficile since December. She has only completed three cycles of chemotherapy as most cycles have been postponed due to infection. In fact, she was seen in our office on April [address] Cantu and was noted to have mild neutropenia with ANC of 1.4. Chemo was once again postponed. She is followed by Dr. Simmons for her urinary infections and Clostridium difficile. She was to have her stents removed tomorrow by Dr. Weston. She had a COVID test on April 30 that was negative. Over the weekend, she once again developed fever, weakness, abdominal pain, nausea, and vomiting. She presented to the emergency room and was placed on COVID precautions. Her test returned today negative. On admission, she was placed on aztreonam and vancomycin. Her Eliquis was held. She has been getting IV hydration. Her white count on admission was 3. Her hemoglobin has trended downward to 7.9. The patient was seen at bedside. She appears acutely ill. She remains on Clostridium difficile precautions. She denies any complaints other than occasional abdominal pain. PAST MEDICAL HISTORY: 1. CLL. 2. Enterococcus septicemia. 3. Chronic Clostridium difficile. 4. Chronic fungal UTI. 5. Diabetes. 6. KS. 7. Hyperlipidemia. 8. Anxiety and depression. 9. Remote history of cervical cancer. PAST SURGICAL HISTORY: 1. Appendectomy. 2. Ear and eye surgery. 3. Hysterectomy. 4. Tonsillectomy. 5. Back surgery. ALLERGIES: TO ASPIRIN, BACTRIM, KEFLEX, AND PENICILLINS. HOME MEDICATIONS: 1. Atenolol. 2. Zetia. 3. Neurontin. 4. Crestor. 5. Zoloft. 6. Eliquis. 7. Zanaflex. 8. Vfend. 9. Exenatide injection. FAMILY HISTORY: Father had lung cancer. Has brothers with kidney and bone cancer. SOCIAL HISTORY: , has 4 children. Former smoker. No alcohol or illicit drug use. REVIEW OF SYSTEMS: Negative except for noted in HPI. PHYSICAL EXAMINATION: VITAL SIGNS: Temperature is 97.8 with T-max of 102.8 in the last 24 hours, pulse is 80, respiratory rate 18, BP is 133/70, and she is 99% on room air. GENERAL: This is a well-developed, well-nourished female, in mild distress. HEENT: Normocephalic and atraumatic. Pupils are equal and reactive to light. NECK: Supple. CV: Regular rate and rhythm. LUNGS: Clear anterior. ABDOMEN: Soft, mildly tender to palpation. Bowel sounds are positive. EXTREMITIES: No clubbing or cyanosis. SKIN: No rash. NEUROLOGIC: Nonfocal. PERTINENT LABORATORY DATA AND X-RAYS: Current WBCs are 3.5, hemoglobin 7.9, hematocrit 26.2, platelet count 287,000, she has 35% neutrophils, 5% bands, 33% lymphocytes, 27% monocytes. Sodium is 133, potassium 4.1, chloride 104, CO2 is 23, BUN is 49, creatinine 2.18, lactic acid 2.1, calcium 7.65, phosphorus 4, magnesium 2.1, total bilirubin 0.6, AST is 20, ALT is less than 7, alkaline phosphatase is 1206. Serum total protein is 4.8, albumin 2.5, globulin 2.3. Chest x-ray showed no acute process. Abdomen and pelvis CT showed moderate right lateral hydronephrosis and stents, showed improvement in lymphadenopathy. ASSESSMENT: 1. Sepsis. 2. Chronic lymphocytic leukemia. 3. Negative COVID x2. 4. Acute kidney injury. DISCUSSION: The patient has been placed on antibiotics. She has gram-negative rods in her blood culture. Recommend consulting ID as Dr. Simmons is managing the patient in the outpatient setting, Dr. Weston has been consulted. Her chemotherapy is currently held. We will monitor her CBC and transfuse as needed. Thank you for the consult. Case has been discussed with Dr. Cantu. Job ID: [id number] [facility]
--- NOTE | 2020-05-04 22:31 | CON ---
DATE OF CONSULTATION: 05/04/2020 HISTORY OF PRESENT ILLNESS: This is a 69-year-old female with a history of CLL, which was causing ureteral obstruction from retroperitoneal lymphadenopathy. She underwent bilateral stent placement on December 17, 2019. She was started on treatment for the CLL by Dr. Cantu and has had recurrent urinary tract infections requiring hospital admission. She recently underwent stent exchange during hospitalization. She presented to the emergency room yesterday reporting several days of abdominal pain, cramping, nausea, vomiting, weakness, and fevers. She also noted dysuria and hematuria. She was scheduled to have her stents removed tomorrow. CT scan from her ER visit yesterday shows mild left hydroureter and hydronephrosis with [id number] hydroureter and hydronephrosis on the right. Creatinine was 2.3. She met sepsis protocol, and so was admitted to the medical service, started on aztreonam and vancomycin. In speaking with her today, she tells me that she does not feel that she has improved much since yesterday. She continues to have flank pain, nausea, low-grade fevers, dysuria, intermittent hematuria. Her creatinine has improved somewhat to 2.1. PAST MEDICAL HISTORY: CLL treated with chemotherapy by Dr. Cantu, cervical cancer, bilateral ureteral obstruction with hydronephrosis, coronary artery disease, hyperlipidemia, diabetes, fibromyalgia, migraines, and depression. PAST SURGICAL HISTORY: Cystocele repair, stent placement as described in HPI, tubal ligation, appendectomy, lumpectomy, back surgery, and hysterectomy. SOCIAL HISTORY: Nonsmoker. No substance abuse. FAMILY HISTORY: Reviewed, noncontributory. MEDICATIONS: Reviewed. No pertinent urology medications at this time. REVIEW OF SYSTEMS: Ten-point review of systems negative except as mentioned in my HPI. PHYSICAL EXAMINATION: VITAL SIGNS: Febrile to 102.8 overnight, mild tachycardia. Blood pressure stable overnight. Urine output not recorded overnight. GENERAL: No acute distress, we will converse when prompted. HEAD: Normocephalic and atraumatic. Extraocular movements intact. Sclerae nonicteric. NECK: Supple. Trachea midline. LUNGS: Breathing unlabored. Symmetric chest expansion. HEART: Regular rate and rhythm. ABDOMEN: Soft, diffusely tender, and nondistended. Mild suprapubic tenderness. No CVA tenderness. SKIN: Warm and dry. : Campos catheter draining yellow urine without debris. EXTREMITIES: Without clubbing or cyanosis. NEUROLOGIC: Somnolent, oriented x3. PSYCHIATRIC: Normal mood and affect. LABORATORY DATA: Reviewed. White count 3.5, creatinine 2.18. Urinalysis; negative nitrite, positive leukocyte. Urine culture from last week growing Proteus resistant only to Macrobid. CT scan has been personally reviewed by me showing persistent hydronephrosis and hydroureter down to about the level of the internal iliacs bilaterally right greater than left. ASSESSMENT AND PLAN: Hydronephrosis, urinary tract infection, ureteral obstruction. I agree with broad-spectrum antibiotics while we await resistances. I have asked that a Campos catheter replaced yesterday in emergency room to see how her creatinine and hydronephrosis responded. This was not done and so I asked that to be placed this morning. We will repeat a renal ultrasound this afternoon. If her hydronephrosis does not improve with Campos catheter drainage, she will likely require percutaneous nephrostomy tubes. Afterwards, we can remove her stents. TIME SPENT: 70 minutes spent in the patient's care. Job ID: [id number]
[2020-05-05] MEDS: Vancomycin HCl 25 MG/ML Oral PO SCH ×4 (00:38→18:58)
[2020-05-05 00:49] LABS: Actual Bicarbonate (HCO3a) 21.4 mEq/L (22-28); Base Excess (BEa) -6.5 mEq/L (-2.0 to +3.0); CO2 Tension 57.4 mmHg (35.0-45.0); Hemoglobin (Hb) 7.7 g/dL (12.0-16.0); pH, Arterial 7.19 (7.35-7.45)
[2020-05-05 00:50] LABS: Calcium, Ionized (arterial) 1.12 mmol/L (1.12-1.30); Carboxyhemoglobin (COHb) 0.6 gm% (0.0-3.0); Puncture Site LBR
--- NOTE | 2020-05-05 01:35 | PDOC.BPN ---
- Brief Progress Note See and examined at bedside after informed by primary RN of patient progressive decline. Remains unresponsive to painful stimuli with ABG showing Ph of 7.1 and worsening CO2 retention. Currently being treated for possible UTI with broad spectrum ABX. Given depressed mental status patient may require intubation. Case discussed with transition nurse pulmonary attending Dr. Farley who will see patient in consultation in AM. Antesthesia has been paged to assist with intubation. Will continue to monitor closely.
[2020-05-05] MEDS ORDERED: Fentanyl BOLUS 250 ML IVPB PRN (02:08)
[2020-05-05] MEDS ORDERED: DISCONTINUE PREVIOUS NARCOTIC PAIN MEDICATIONS AND BENZODIAZEPINES FS SCH (02:08)
[2020-05-05] MEDS ORDERED: Propofol BOLUS 1,000 MG/100 ML VIAL IV PRN (02:08)
[2020-05-05] MEDS ORDERED: fentaNYL Citrate/PF 2,000 MCG in Sodium Chloride 0.9% 60 ML IV SCH (02:08)
[2020-05-05] MEDS ORDERED: Propofol 1,000 MG/100 ML VIAL IV PRN (02:08)
[2020-05-05] MEDS ORDERED: Morphine 2 MG/ML SYRINGE SLOW IVP PRN (02:08)
[2020-05-05] MEDS ORDERED: Lorazepam 2 MG/ML VIAL SLOW IVP PRN (02:08)
[2020-05-05] MEDS ORDERED: Sodium Chloride 0.9% 1,000 ML IV SCH (02:15)
[2020-05-05 02:28] LABS: Actual Bicarbonate (HCO3a) 17.4 mEq/L (22-28); Base Excess (BEa) -6.5 mEq/L (-2.0 to +3.0); CO2 Tension 28.6 mmHg (35.0-45.0); Calcium, Ionized (arterial) 1.04 mmol/L (1.12-1.30); Carboxyhemoglobin (COHb) 0.8 gm% (0.0-3.0); O2 Tension (PaO2), arterial 273.7 mmHg (> 80.0); Potassium - ABG Lab 3.96 mmol/L (3.70-5.30)
[2020-05-05 02:29] LABS: Puncture Site LRA
[2020-05-05] MEDS: Albumin 25% 25 GM/100 ML BOT IVPB SCH ×3 (02:29→12:47)
[2020-05-05] MEDS: Sodium Bicarbonate 150 MEQ in Dextrose 5% in Water 1,000 ML IV SCH ×3 (02:30→23:45)
[2020-05-05 05:52] LABS: Band 6 % (5-11); Hemoglobin 7.9 g/dL (12.0-16.0); Hypochromia SLIGHT = 6-15 cells (100X) (0-5/hpf); Lymphocytes 36 % (21-51); MDiff Complete? YES; Mean Corpuscular HGB CONC 30.7 g/dL (32.0-36.0); Mean Corpuscular Hemoglobin 27.1 pg (27.0-31.0); Mean Platelet Volume 9.2 fL (7.4-10.4); Monocytes 32 % (0-10); Neutrophil 26 % (42-75); Platelet Count 243 thou/uL (130-400); Platelet Morphology Comment Appears Adequate; RBC Distribution Width 13.4 % (11.5-14.5); White Blood Cell (WBC) Count 2.2 thou/uL (4.8-10.8)
[2020-05-05 06:00] LABS: ALT (SGPT) 7 U/L (8-55); AST (SGOT) 33 U/L (5-34); Alkaline Phosphatase 1074 U/L (40-110); Anion Gap 17 mmol/L (10-20); BUN (Urea Nitrogen) 58 mg/dL (9.8-20.1); Bilirubin, Total 1.5 mg/dL (0.2-1.2); Calc. Creatinine Clearance 20 mL/min (70-130); Calcium 7.5 mg/dL (7.8-10.44); Carbon Dioxide 19 mmol/L (23-31); Chloride 104 mmol/L (98-107); Estimated GFR-MDRD 16; Globulin 1.9 g/dL (2.4-3.5); Glucose 225 mg/dL (80-115); Magnesium 1.9 mg/dL (1.6-2.6); Potassium 3.5 mmol/L (3.5-5.1); Protein, Total 4.9 g/dL (6.0-8.3); Sodium 136 mmol/L (136-145)
[2020-05-05] MEDS: Insulin Regular 300 UNITS/3 ML VIAL SC PRN (07:26)
--- NOTE | 2020-05-05 07:48 | RAD ---
EXAM: Single view of the chest HISTORY: NG tube placement COMPARISON: 05/03/2020 FINDINGS: Single view of the chest shows a normal sized cardiomediastinal silhouette. The Mediport i s unchanged in position. An endotracheal tube is seen with its tip approximately 1.5 cm above the leigh. An NG tube is seen in the stomach. Opacity is seen in the right lung apex which may represen t right upper lobe collapse/atelectasis. The bones are unremarkable. IMPRESSION: Right upper lobe collapse/atelectasis. The endotracheal tube could be withdrawn approxima tely 2 cm.
--- NOTE | 2020-05-05 07:50 | RAD ---
EXAM: Single view of the chest HISTORY: Intubation COMPARISON: 05/03/2020 and 05/05/2020 FINDINGS: Single view of the chest shows a normal sized cardiomediastinal silhouette. An endotrachea l tube is seen with its tip approximately 1.5 cm from the leigh. The Mediport is unchanged in position. There is no evidence of consolidation, mass, or pleural effusion. The bones are unremarkab le. IMPRESSION: Endotracheal tube position as above. A subsequent radiograph shows collapse of the right upper lobe and endotracheal tube may be due to be withdrawn approximately 2 cm.
[2020-05-05] MEDS ORDERED: Succinylcholine Chloride 20 MG/ML 10 ml SYRINGE FS SCH (08:00)
[2020-05-05] MEDS ORDERED: Sterile Water 10 ML VIAL IVP SCH (08:39)
[2020-05-05] MEDS ORDERED: Activase 2 MG VIAL CATH SCH (08:39)
--- NOTE | 2020-05-05 09:03 | PDOC.HOSPP ---
- Subjective Encounter Date: 05/04/20 Encounter Time: 20:00 non-verbal Subjective: Patient seen and examined for Sepsis. Lethargic. - Objective Vital Signs & Weight: Vital Signs (12 hours) Temp Pulse Resp BP BP Pulse Ox 05/05/20 07:05 82 123/55 L 05/05/20 06:00 16 05/05/20 04:00 98.8 F 16 100 05/05/20 03:00 98.4 F 05/05/20 02:46 74 101/43 L 05/04/20 23:46 99.8 F H 05/04/20 23:42 99.6 F 05/04/20 23:00 99 05/04/20 22:40 99.8 F H 05/04/20 21:47 98.2 F 66 16 93/51 L 100 Weight Admit Weight 147 lb 14.4 oz Weight 147 lb 14.4 oz Most Recent Monitor Data Heart Rate from ECG 80 NIBP 123/55 NIBP BP-Mean 77 Respiration from ECG 20 SpO2 100 I&O: 05/04/20 05/05/20 05/06/20 06:59 06:59 06:59 Intake Total 2470 Output Total 655 Balance 1815 Result Diagrams: 05/05/20 04:45 05/05/20 04:45 Additional Labs: Accuchecks 05/05/20 05/04/20 05/04/20 00:14 20:10 12:32 POC Glucose 259 H 218 H 162 H Radiology Reviewed by me: Yes (CT abd reviewed) EKG Reviewed by me: Yes (SR) Hospitalist ROS - Review of Systems ROS unobtainable: due to mental status - Medication Medications: Active Medications Generic Name Dose Route Start Last Admin Trade Name Freq PRN Reason Stop Dose Admin Acetaminophen 650 mg 05/03/20 18:37 05/04/20 08:52 Tylenol PO 650 mg Q4H PRN Administration Headache/Fever/Mild Pain (1-3) Albumin Human 25 gm 05/04/20 23:59 05/05/20 06:30 Albumin 25% IVPB 05/05/20 12:01 25 gm Q6HR CORIN Administration Ezetimibe 10 mg 05/04/20 21:00 05/04/20 20:00 Zetia PO 10 mg HS CORIN Administration Famotidine 20 mg 05/04/20 09:00 05/04/20 08:52 Pepcid PO 20 mg QAM CORIN Administration Gabapentin 600 mg 05/04/20 09:00 05/04/20 20:00 Neurontin PO Not Given TID CORIN Aztreonam 0.5 gm/ Sodium 100 mls @ 100 mls/hr 05/04/20 02:00 05/05/20 02:30 Chloride IVPB 100 mls 0200,1400 CORIN Administration Insulin Glargine 10 units/ 0.1 mls @ 0 mls/hr 05/04/20 21:00 05/04/20 20:16 Miscellaneous Medication SC Not Given HS CORIN Sodium Bicarbonate 150 meq/ 1,150 mls @ 100 mls/hr 05/05/20 00:06 05/05/20 02 :30 Dextrose/Water IV 1,150 mls .[id number] CORIN Administration Insulin Human Regular 0 units 05/03/20 18:33 05/05/20 07:26 Humulin R SC 4 unit .MODERATE SLIDING SC PRN Administration Moderate Correctional Scale Loratadine 10 mg 05/04/20 09:00 05/04/20 08:53 Claritin PO 10 mg DAILY CORIN Administration Propofol 1,000 mg 05/05/20 02:08 05/05/20 02:35 Diprivan IV 06/04/20 02:08 1,000 mg INF PRN Administration TO ACHIEVE GOAL RASS Protocol Rosuvastatin Calcium 40 mg 05/04/20 21:00 05/04/20 20:00 Crestor PO 40 mg HS CORIN Administration Saccharomyces Boulardii 250 mg 05/03/20 21:00 05/04/20 20:00 Florastor PO Not Given BID CORIN Sertraline HCl 100 mg 05/04/20 09:00 05/04/20 08:52 Zoloft PO 100 mg DAILY CORIN Administration Sodium Chloride 10 ml 05/03/20 21:00 05/04/20 20:16 Flush - Normal Saline IVF Not Given Q12HR CORIN Vancomycin HCl 125 mg 05/03/20 23:59 05/05/20 00:38 First Vancomycin PO Not Given Q6HR CORIN - Exam General Appearance: ill appearing General - other findings: lethargic Heart: RRR, no gallops, no rubs Heart - other findings: weak radial pulse Respiratory - other findings: dec AE at bases Gastrointestinal: soft, normal bowel sounds, no guarding, no rigidity Psychiatric: lethargic Hosp A/P - Plan DVT proph w/SCDs Severe sepsis due to Proteus UTI and bacteremia Obstructive uropathy TEODORO Metabolic acidosis due to sepsis DM2 CLL Other issues per previous notes PLAN: Stat ABG Transfer to [facility] Cont Azactam Bicarb drip Family updated IVF bolus
--- NOTE | 2020-05-05 09:21 | PDOC.MOPN ---
Interval History: Pt was intubated overnight for hypercapnic respiratory failure. She is responsive to pain only, but this is improved since last night. Spoke with daughter at bedside. - Vital Signs Vital Signs: Vital Signs (12 hours) Temp Pulse Resp BP BP Pulse Ox 05/05/20 07:05 82 123/55 L 05/05/20 06:00 16 05/05/20 04:00 98.8 F 16 100 05/05/20 03:00 98.4 F 05/05/20 02:46 74 101/43 L 05/04/20 23:46 99.8 F H 05/04/20 23:42 99.6 F 05/04/20 23:00 99 05/04/20 22:40 99.8 F H 05/04/20 21:47 98.2 F 66 16 93/51 L 100 Weight Admit Weight 147 lb 14.4 oz Weight 147 lb 14.4 oz Most Recent Monitor Data Heart Rate from ECG 80 NIBP 123/55 NIBP BP-Mean 77 Respiration from ECG 20 SpO2 100 - Physical Exam General: Other (responds to touch) HEENT: Other (intubated with ETT/OT in place) Lungs: Normal air movement Cardiovascular: Regular rate Abdomen: Soft Neurological: Other (moves extremities to touch) - Labs Result Diagrams: 05/05/20 04:45 05/05/20 04:45 Lab results: Laboratory Results - last 24 hr 05/05/20 04:45: WBC 2.2 L, RBC 2.90 L, Hgb 7.9 L, Hct 25.6 L, MCV 88.0, MCH 27.1 , MCHC 30.7 L, RDW 13.4, Plt Count 243, MPV 9.2, Neutrophils % (Manual) 26 L, Band Neuts % (Manual) 6, Lymphocytes % (Manual) 36, Monocytes % (Manual) 32 H, Hypochromia SLIGHT = 6-15 cells, Plt Morphology Comment Appears Adequate 05/05/20 04:45: Sodium 136, Potassium 3.5, Chloride 104, Carbon Dioxide 19 L, Anion Gap 17, BUN 58 H, Creatinine 2.94 H, Estimated GFR (MDRD) 16, Glucose 225 H, Calcium 7.5 L, Magnesium 1.9, Total Bilirubin 1.5 H, AST 33, ALT 7 L, Alkaline Phosphatase 1074 H, Serum Total Protein 4.9 L, Albumin 3.0 L, Globulin 1.9 L, Albumin/Globulin Ratio 1.6 05/05/20 02:20: Specimen Type ARTERIAL, Puncture Site LRA, Bicarbonate Actual 17.4 L, ABG pH 7.40, ABG pCO2 28.6 L, ABG pO2 273.7 H, ABG O2 Sat (Measured) 99.8 H, ABG O2 Content 11.8 L, ABG Base Excess -6.5 L, ABG Hematocrit 24.0 L, ABG Hemoglobin 8.0 L, ABG Oxyhemoglobin 98.7 H, ABG Carboxyhemoglobin 0.8, ABG Methemoglobin 0.30, ABG Deoxyhemoglobin 0.2, Lalo Test POSITIVE, A-a O2 Gradient 403.550 H, Sodium 131 L, Potassium 3.96, Chloride 103, Ionized Calcium 1.04 L, Mode of Support SIMV, Mechanical Rate 20, Inspired O2 100, Tidal Volume 500, Pressure Support 10, PEEP or CPAP 5.0 05/05/20 01:05: Blood Type O POSITIVE 05/05/20 00:45: Specimen Type ART, Puncture Site LBR, Bicarbonate Actual 21.4 L , ABG pH 7.19 L*, ABG pCO2 57.4 H, ABG pO2 84.0 H, ABG O2 Sat (Measured) 95.0, ABG O2 Content 10.3 L, ABG Base Excess -6.5 L, ABG Hematocrit 23.0 L, ABG Hemoglobin 7.7 L, ABG Oxyhemoglobin 95.0, ABG Carboxyhemoglobin 0.6, ABG Methemoglobin 0.30, A-a O2 Gradient 43.890 H, Sodium 132 L, Potassium 4.00, Chloride 102, Ionized Calcium 1.12, Mode of Support NC, Inspired O2 28 05/05/20 00:14: POC Glucose 259 H 05/05/20 00:04: Blood Type O POSITIVE, Antibody Screen NEGATIVE, Crossmatch See Detail 05/04/20 21:34: WBC 2.5 L, RBC 2.42 L, Hgb 6.8 L, Hct 21.7 L, MCV 89.6, MCH 28.0 , MCHC 31.2 L, RDW 13.3, Plt Count 246, MPV 9.0, Neutrophils % (Manual) 28 L, Band Neuts % (Manual) 14 H, Lymphocytes % (Manual) 16 L, Monocytes % (Manual) 42 H, Lymphocytes # Not Reportable, Hypochromia SLIGHT = 6-15 cells, Plt Morphology Comment Appears Adequate 05/04/20 21:34: Lactic Acid 0.7 05/04/20 21:34: Cortisol 15.30 05/04/20 21:34: Troponin I 0.057 H 05/04/20 21:34: Sodium 133 L, Potassium 3.9, Chloride 106, Carbon Dioxide 20 L, Anion Gap 11, BUN 55 H, Creatinine 2.69 H, Estimated GFR (MDRD) 18, Glucose 208 H, Calcium 7.6 L 05/04/20 21:14: Specimen Type ARTERIAL, Puncture Site LRA, Bicarbonate Actual 17.9 L, ABG pH 7.18 L*, ABG pCO2 49.5 H, ABG pO2 84.1 H, ABG O2 Sat (Measured) 94.3, ABG O2 Content 12.4 L, ABG Base Excess -10.0 L, ABG Hematocrit 27.0 L, ABG Hemoglobin 9.3 L, ABG Oxyhemoglobin 93.5 L, ABG Carboxyhemoglobin 0.5, ABG Methemoglobin 0.30, ABG Deoxyhemoglobin 5.7 H, Lalo Test POSITIVE, A-a O2 Gradient 82.185 H, Sodium 132 L, Potassium 3.94, Chloride 105, Ionized Calcium 1.16, Mode of Support NC, Inspired O2 32 05/04/20 20:10: POC Glucose 218 H 05/04/20 12:32: POC Glucose 162 H 05/03/20 20:30: COVID-19 PCR Not Detected A/P - Problem (1) Acute kidney injury Current Visit: No Code(s): N17.9 - ACUTE KIDNEY FAILURE, UNSPECIFIED Status : Acute (2) Urinary tract infection Current Visit: No Status: Acute (3) Chronic lymphocytic leukemia (CLL), B-cell Current Visit: No Code(s): C91.10 - CHRONIC LYMPHOCYTIC LEUK OF B-CELL TYPE NOT ACHIEVE REMIS Status: Chronic - Plan Plan: Start Granix daily until ANC > 1000 Cont holding Venetoclax Pulmonary care as per Pulm: ABG improved quickly, pH now normal, on minimal vent settings Possible nephrostomy tubes with Dr. Weston and then remove stents: likely need to wait until more stable, extubated Cont antibiotics for Proteus as per Dr. Simmons, f/u sensitivities
[2020-05-05] MEDS ORDERED: Iopamidol 300 61% 50 ML VIAL FS ONE (09:49)
[2020-05-05] MEDS: Gabapentin 300 MG CAP PO SCH ×3 (10:42→21:19)
[2020-05-05] MEDS: Saccharomyces boulardii 250 MG CAP PO SCH ×2 (10:43→21:19)
[2020-05-05] MEDS: Loratadine 10 MG TAB PO SCH (10:43)
[2020-05-05] MEDS: Famotidine 20 MG TAB PO SCH (10:43)
[2020-05-05] MEDS: Metoprolol Tartrate 25 MG TAB PO SCH ×2 (10:43→21:20)
[2020-05-05] MEDS: Insulin Glargine 10 UNITS in Pre-Filled Syringe 1 EACH SC SCH ×2 (11:08→21:46)
[2020-05-05 11:10] LABS: INR-International Normal Ratio 1.4; PTT 48.2 sec (22.9-36.1); Prothrombin Time 16.6 sec (12.0-14.7)
[2020-05-05] MEDS ORDERED: Fentanyl 100 MCG/2 ML VIAL ONE (14:09)
[2020-05-05] MEDS ORDERED: Midazolam HCl 2 mg/2 ml Vial ONE (14:10)
[2020-05-05] MEDS ORDERED: Sodium Chloride 0.9% 20 ML ONE (14:10)
--- NOTE | 2020-05-05 16:09 | CON ---
DATE OF CONSULTATION: 05/05/2020 HISTORY OF PRESENT ILLNESS: Barbra Cervantes is a 69-year-old female, who was intubated last night with progressive respiratory failure. Her blood gas shows a pO2 of 84, pCO2 OF 57, pH of 7.19. She was started on a bicarb drip. Her creatinine is 2.9, BUN is 58. She has been in the hospital here now for several days with a diagnosis of hydronephrosis. She is being followed by Urology. She has ureteral obstruction from a retroperitoneal lymph node. She has bilateral stent placement. Her CLL has been followed by a local oncologist. She presented to the ER with abdominal pain, nausea, vomiting, and fever. She has Proteus in the urine, started on broad-spectrum antibiotics. CT of abdomen showed a mid left hydroureter, hydronephrosis, and [id number] hydroureter and hydronephrosis on the right side. She became confused, lethargic yesterday requiring intubation. Presently, she is intubated in the vent, mildly sedated, and she is hypotensive. PAST MEDICAL HISTORY: CLL with abdominal lymphadenopathy, history of cervical cancer, UTI, coronary artery disease, diabetes, fibromyalgia, migraine, and depression. PAST SURGICAL HISTORY: Stents placed in ureter, bilateral tubal ligation, appendectomy, hysterectomy, tonsillectomy, back surgery, bladder surgery. SOCIAL HISTORY: No alcohol or tobacco abuse. HOME MEDICATIONS: Include: 1. Zanaflex. 2. Vfend 200. 3. Zoloft 100. 4. Crestor 40. 5. Gabapentin 600. 6. Zetia 10. 7. Tenormin 25. 8. Eliquis 5 twice a day. ALLERGIES: NONE. REVIEW OF SYSTEMS: Otherwise, negative. PHYSICAL EXAMINATION: VITAL SIGNS: Blood pressure is 98/60, pulse 60, saturations 100%, respiratory rate 16. CHEST: Decreased breath sounds. No wheezing. CARDIAC: Normal S1, S2. No gallops. ABDOMEN: No masses. DIAGNOSTIC STUDIES: X-ray shows a right upper lung atelectatic changes, probably postintubation, mucous plugging. White count 2000, H and H 7 and 25, platelet count 243. PO2 OF 273, 100%, rate at 20. Creatinine 2, BUN 58, alkaline phosphatase is 1074. ASSESSMENT AND PLAN: 1. Respiratory failure, mixed, metabolic and respiratory acidosis. 2. Right upper lung atelectasis. 3. Urinary tract infection. 4. Bilateral hydronephrosis. 5. Chronic lymphocytic leukemia with abdominal lymphadenopathy. 6. Depression. The patient, apparently, may be transferred to [place] as per Nephrology. From a pulmonary standpoint of view, she is stable to be transferred. I am going to give her a small volume. 250 of Plasmanate, otherwise antibiotics as per Infectious Disease. Supportive care. CRITICAL CARE TIME: 45 minutes. Job ID: [id number]
--- NOTE | 2020-05-05 16:17 | PRG ---
DATE OF SERVICE: 05/05/2020 SUBJECTIVE: The patient was intubated and transferred to CCU yesterday. She remains intubated and is unable to answer any questions this morning. Low urine output overnight. Catheter draining well with dark urine. No CVA tenderness. No suprapubic tenderness apparent. LABORATORY DATA: Creatinine has risen from 2.18 yesterday to 2.94 today. Urinalysis has returned Proteus mirabilis, sensitive to all but nitrofurantoin. IMAGING STUDIES: Ultrasound from yesterday shows persistent hydronephrosis despite ureteral stents in good position and Campos catheter draining the bladder. ASSESSMENT AND PLAN: Bilateral ureteral obstruction due to lymphadenopathy secondary to CLL, extrinsic obstruction of ureteral stents causing hydronephrosis despite adequate drainage, sepsis secondary to urinary tract infection. Given that the patient is now developing worsening renal function despite indwelling stents and Campos catheter with ultrasound showing persistent hydronephrosis, I recommended and ordered bilateral nephrostomy tubes. I spoke with Dr. Martinez this morning, who advised that the CT scanner that they would use for this is down currently and that he does not feel that ultrasound guided nephrostomy tube placement is feasible in her case given her body habitus and degree of obstruction. I have now spoken with Dr. West, the attending of record and advised that this patient needs nephrostomy tubes to protect renal function promptly and unfortunately, this is not available at our facility. She will need to be transferred to another facility to perform nephrostomy tube placement. Her ureteral stents will remain even after nephrostomy tube placement until she is clinically much more stable. I do not think that her sepsis secondary to urinary tract infection will improve with antibiotic treatment only, she requires drainage of her renal units. Job ID: [id number] [facility]
[2020-05-05] MEDS ORDERED: Digoxin 0.5 MG/2 ML AMP SLOW IVP SCH (16:45)
[2020-05-05] MEDS ORDERED: Sodium Chloride 0.9% 500 ML IV SCH (17:00)
--- NOTE | 2020-05-05 17:00 | ULT ---
Ultrasound-guided needle access for bilateral percutaneous nephrostomy access: DATE: 05/05/2020 HISTORY: 69-year-old female with bilateral ureteral obstruction TECHNIQUE: Ultrasound was used to assist in obtaining needle access to the bilateral kidneys. Direct ultrasound-guided needle access was used 2 obtained needle access at the moderately dilated ri ght renal upper pole calyx. Ultrasound was used to assist in selecting the puncture site for the contralateral left renal access, but the needle advancement itself on the left side was performed with fluoroscopy. FINDINGS: A total of 4 sagittal ultrasound images demonstrating the moderately dilated right renal upper pole c shabana. Images of the left kidney were not saved. IMPRESSION: Ultrasound assistance for bilateral percutaneous nephrostomy access.
--- NOTE | 2020-05-05 17:19 | SPC ---
PERCUTANEOUS NEPHROSTOMY BILATERAL NEPHROSTOGRAMS BILATERAL: DATE: 05/05/2020 HISTORY: 69-year-old female with bilateral ureteral obstruction. Malfunctioning bilateral ureteral stents: Miladis diegont has developed bilateral hydronephrosis despite the stents. TECHNIQUE: Proxy signed informed consent obtained. Procedure was performed with assistance of anesthesiology ser vice. Patient already intubated when she was brought to the special procedures suite. She was placed prone on the special procedures fluoroscopy table. Right side was selected first. Right flank skin was prepared and draped in usual sterile fashion. 25-gauge needle was used to apply buffered lidocaine. Under ultrasound guidance, a 22-gauge AccuStick needle was advanced under ultrasound alo nce, into the dilated right renal upper pole calyx. Upon brisk return of urine through the AccuStick needle, iodinated contrast Isovue was injected under fluoroscopy, opacifying the right robert l collecting system. A 0.018 inch guidewire was advanced through the AccuStick needle into the renal pelvis, then into the proximal ureter. A blade, followed by hemostat blunt dissection, was used to enlarge the needle entry site. The 22-gauge AccuStick needle was exchanged over the 0.018 inch guidewire for a 5 Salvadorean dilator with sheath. The dilator and 0.018 inch guidewire were removed. A 0. 035 inch floppy J-tipped guidewire was advanced through the 5 Salvadorean sheath under fluoroscopy guidance, down the ureter, and into the bladder. The 5 Salvadorean sheath was exchanged over that guidewir e for an 8 Salvadorean dilator. This dilator was then exchanged over the guidewire for an 8 Salvadorean nephrostomy catheter with inner stiffener. The nephrostomy catheter was advanced beyond the inner sti ffener into the proximal ureter. The guidewire and stiffener were removed. The nephrostomy catheter was pulled back into the right renal pelvis. Pigtail loop was formed and locked into place. Contrast was injected into the catheter to confirm good position in the renal pelvis, then was aspirated. The nephrostomy tube was sutured into place at the skin. No complications. For the left kidney, ultrasound was used to assist selection of puncture site at the skin. 25-gauge n eedle was used to apply buffered lidocaine. 22-gauge AccuStick needle was advanced under fluoroscopic guidance, targeting the upper pole calyx using the the upper pigtail loop of the existin g left ureteral stent as the target. The rest of the left-sided procedure was performed in identical fashion to that of the right. The pigtail loop of the right left nephrostomy catheter was a lso placed in the left renal pelvis (the upper pigtail loop of the existing ureteral stent is at upper pole calyx). IMPRESSION: Successful bilateral percutaneous nephrostomy, with placement of 8 Salvadorean bilateral nephrostomy tubes .
[2020-05-05 17:27] LABS: Hemoglobin 8.1 g/dL (12.0-16.0)
[2020-05-05] MEDS: Amiodarone 450 MG in Dextrose 5% in Water 250 ML IVPB SCH ×2 (17:41→23:46)
--- NOTE | 2020-05-05 17:41 | EKG ---
Test Reason : STAT Blood Pressure : / mmHG Vent. Rate : 147 BPM Atrial Rate : 141 BPM P-R Int : 000 ms QRS Dur : 072 ms QT Int : 312 ms P-R-T Axes : 000 017 -06 degrees QTc Int : 488 ms Atrial fibrillation with rapid ventricular response Low voltage QRS Nonspecific ST abnormality Abnormal ECG When compared with ECG of 03-MAY-2020 13:35, (Unconfirmed) Atrial fibrillation has replaced Sinus rhythm Vent. rate has increased BY [address] now depressed in Anterior leads Confirmed by DR. Celestine GONSALES ([id number]) on 05/05/2020 5:41:31 PM Referred By: LEN SEGURA Confirmed By:DR. Celestine GONSALES
[2020-05-05 18:02] LABS: Anion Gap 13 mmol/L (10-20); BUN (Urea Nitrogen) 57 mg/dL (9.8-20.1); Calc. Creatinine Clearance 18 mL/min (70-130); Calcium 7.3 mg/dL (7.8-10.44); Carbon Dioxide 23 mmol/L (23-31); Chloride 104 mmol/L (98-107); Estimated GFR-MDRD 14; Glucose 115 mg/dL (80-115); Magnesium 1.8 mg/dL (1.6-2.6); Potassium 3.3 mmol/L (3.5-5.1); Sodium 137 mmol/L (136-145)
[2020-05-05 18:08] LABS: Troponin I 0.049 ng/mL (< 0.028)
[2020-05-05] MEDS ORDERED: Potassium Chloride 20 MEQ in Premix Bag 1 BAG IVPB SCH (18:30)
[2020-05-05] MEDS ORDERED: Potassium Chloride 20 MEQ/100 ML PREMIX BAG IVPB SCH (19:00)
--- NOTE | 2020-05-05 20:02 | PDOC.HOSPP ---
- Subjective Encounter Date: 05/05/20 Encounter Time: 11:45 Subjective: Patient seen and examined for Sepsis. On Vent. Overnight events noted - Objective Vital Signs & Weight: Vital Signs (12 hours) Temp Pulse Resp BP BP Pulse Ox 05/05/20 18:25 136 H 05/05/20 18:16 158 H 71/42 L 05/05/20 18:00 13 05/05/20 16:00 98.9 F 125 H 11 L 90/59 L 100 05/05/20 15:55 145 H 12 108/69 100 05/05/20 15:50 135 H 14 101/56 L 100 05/05/20 15:45 138 H 20 111/55 L 100 05/05/20 15:40 138 H 17 113/59 L 100 05/05/20 15:35 64 12 109/62 100 05/05/20 15:30 139 H 17 99/63 100 05/05/20 15:25 118 H 13 102/71 100 05/05/20 15:15 67 10 L 115/44 L 100 05/05/20 15:00 65 15 104/49 L 100 05/05/20 14:45 67 15 106/48 L 100 05/05/20 14:30 67 14 101/48 L 100 05/05/20 14:15 65 19 101/41 L 100 05/05/20 12:53 75 84/45 L 05/05/20 12:00 10 L 05/05/20 10:54 66 05/05/20 10:00 10 L Weight Admit Weight 147 lb 14.4 oz Weight 147 lb 14.4 oz Most Recent Monitor Data Heart Rate from ECG 155 NIBP 73/42 NIBP BP-Mean 52 Respiration from ECG 9 SpO2 92 I&O: 05/04/20 05/05/20 05/06/20 06:59 06:59 06:59 Intake Total 2470 430 Output Total 655 183 Balance 1815 247 Result Diagrams: 05/05/20 17:15 05/05/20 17:33 Additional Labs: Accuchecks 05/05/20 05/05/20 05/05/20 17:00 11:06 00:14 POC Glucose 103 105 259 H 05/04/20 20:10 POC Glucose 218 H Radiology Reviewed by me: Yes (CXR - no infiltrate) EKG Reviewed by me: Yes (Tele SR) Hospitalist ROS - Review of Systems ROS unobtainable: due to mental status - Medication Medications: Active Medications Generic Name Dose Route Start Last Admin Trade Name Freq PRN Reason Stop Dose Admin Acetaminophen 650 mg 05/03/20 18:37 05/04/20 08:52 Tylenol PO 650 mg Q4H PRN Administration Headache/Fever/Mild Pain (1-3) Albuterol/Ipratropium 3 ml 05/05/20 13:00 05/05/20 18:18 Duoneb NEB Not Given [id number] CORIN Ezetimibe 10 mg 05/04/20 21:00 05/04/20 20:00 Zetia PO 10 mg HS CORIN Administration Famotidine 20 mg 05/04/20 09:00 05/05/20 10:43 Pepcid PO 20 mg QAM CORIN Administration Gabapentin 600 mg 05/04/20 09:00 05/05/20 17:08 Neurontin PO 600 mg TID CORIN Administration Aztreonam 0.5 gm/ Sodium 100 mls @ 100 mls/hr 05/04/20 02:00 05/05/20 17:08 Chloride IVPB 100 mls 0200,1400 CORIN Administration Insulin Glargine 10 units/ 0.1 mls @ 0 mls/hr 05/05/20 09:00 05/05/20 11:08 Miscellaneous Medication SC 0.1 mls QAM CORIN Administration Insulin Glargine 10 units/ 0.1 mls @ 0 mls/hr 05/04/20 21:00 05/04/20 20:16 Miscellaneous Medication SC Not Given HS CORIN Sodium Bicarbonate 150 meq/ 1,150 mls @ 100 mls/hr 05/05/20 00:06 05/05/20 11 :32 Dextrose/Water IV 1,150 mls .[id number] CORIN Administration Amiodarone HCl 450 mg/ 259 mls @ 0 mls/hr 05/05/20 16:45 05/05/20 17:41 Dextrose/Water IVPB 259 mls INF CORIN Administration Protocol Per Protocol Potassium Chloride 20 meq/ 100 mls @ 50 mls/hr 05/05/20 18:30 05/05/20 18:56 Device IVPB 05/05/20 20:30 Not Given NOW CORIN Insulin Human Regular 0 units 05/03/20 18:33 05/05/20 07:26 Humulin R SC 4 unit .MODERATE SLIDING SC PRN Administration Moderate Correctional Scale Loratadine 10 mg 05/04/20 09:00 05/05/20 10:43 Claritin PO 10 mg DAILY CORIN Administration Metoprolol Tartrate 12.5 mg 05/05/20 09:00 05/05/20 10:43 Lopressor PO Not Given BID CORIN Potassium Chloride 20 meq 05/05/20 19:00 05/05/20 18:30 Kcl IVPB 05/05/20 21:00 20 meq NOW CORIN Administration Propofol 1,000 mg 05/05/20 02:08 05/05/20 02:35 Diprivan IV 06/04/20 02:08 1,000 mg INF PRN Administration TO ACHIEVE GOAL RASS Protocol Rosuvastatin Calcium 40 mg 05/04/20 21:00 05/04/20 20:00 Crestor PO 40 mg HS CORIN Administration Saccharomyces Boulardii 250 mg 05/03/20 21:00 05/05/20 10:43 Florastor PO 250 mg BID CORIN Administration Sertraline HCl 100 mg 05/04/20 09:00 05/05/20 10:42 Zoloft PO 100 mg DAILY CORIN Administration Sodium Chloride 10 ml 05/03/20 21:00 05/05/20 10:44 Flush - Normal Saline IVF 10 ml Q12HR CORIN Administration Tbo-Filgrastim 480 mcg 05/05/20 09:00 05/05/20 10:44 Granix SC 480 mcg DAILY CORIN Administration Vancomycin HCl 125 mg 05/03/20 23:59 05/05/20 18:58 First Vancomycin PO 125 mg Q6HR CORIN Administration - Exam General Appearance: NAD, ill appearing General - other findings: on Vent - not on sedation Heart: RRR, no gallops, no rubs, normal peripheral pulses Respiratory: no wheezes, no rales, normal chest expansion, rhonchi Gastrointestinal: soft, normal bowel sounds, no guarding, no rigidity Extremities: no cyanosis, no clubbing Musculoskeletal - other findings: Neuro/Psych - cannot assess due to current mentation Hosp A/P - Plan DVT proph w/SCDs Severe sepsis due to Proteus UTI and bacteremia Acute hypoxic resp failure Obstructive uropathy Anemia prob due to CLL s/p 1 unit PRBC TEODORO Metabolic acidosis due to sepsis DM2 CLL Other issues per previous notes PLAN: Cont Azactam @ renal dosing Cont Bicarb drip Nephrostomy tube today Cont Vent support Cont sliding scale Onc/Critical care input appreciated AM labs
[2020-05-05] MEDS ORDERED: Norepinephrine 8 MG/0.9% NS 250 ML ONE (20:47)
[2020-05-05] MEDS: Ezetimibe 10 MG TAB PO SCH (21:19)
[2020-05-05] MEDS: Acetaminophen 325 MG TAB PO PRN (21:19)
[2020-05-05] MEDS: Rosuvastatin 20 MG TAB PO SCH (21:24)
[2020-05-05] MEDS ORDERED: Norepinephrine 8 MG/0.9% NS 250 ML IVPB SCH (21:56)
[2020-05-06] MEDS: Vancomycin HCl 25 MG/ML Oral PO SCH ×4 (00:22→18:17)
--- NOTE | 2020-05-06 02:23 | CON ---
DATE OF CONSULTATION: 05/05/2020 INDICATION FOR CONSULTATION: A 69-year-old female who has underwent bilateral ureteral stents today for bilateral hydronephrosis. She has a history of CLL with retroperitoneal lymphadenopathy causing obstructive uropathy for which she underwent stent placement in the past. It appears that some of the stents may have occluded. She again presented with urinary tract infection and urosepsis, at least bacteremia and was found to have I believe Proteus mirabilis in the urine. Previously, she has had Enterococcus septicemia. She yesterday evening was transferred from the step-down unit over to the intensive care unit. She developed atrial fibrillation with rapid ventricular response. She also became somewhat hypotensive. She apparently was more stable. She went down and was converted back to sinus rhythm. She went down today to have the stents placed again with uropathy tubes placed for the obstruction. She was in the prone position and then apparently when she came back to the unit, was in atrial fibrillation with rapid ventricular response with heart rates as much as 180. When I saw the patient this afternoon in the unit, the heart rate was still in the 170s to almost 200 with atrial fibrillation, rapid ventricular response. Her blood pressure was in the 60s. She had been started on IV amiodarone without bolus. Her renal function has showed acute renal insufficiency with a creatinine of 3.3, potassium was 3.3 also, somewhat hesitant to give digoxin, but given the rapid heart rate. She was given of 0.5 IV digoxin. She continued to have a rapid heart rate. I then cardioverted her with 100 joules. She then converted again shortly thereafter, is back to atrial fibrillation. We continued to give the IV amiodarone. We gave a slight bolus of the amiodarone and then again waited a few minutes for this to circulate and then again tried to shock again about 120 joules. She again converted to sinus rhythm with a heart rate in the 60s. Blood pressure did improve to the 70s and 80s systolically. She then a few minutes later again converted back to atrial fibrillation. She was given additional 0.25 mg of IV digoxin and continued on the IV amiodarone. I gave her 500 mg of IV fluid bolus. The blood pressure is still not improved. Eventually after the 2nd dose of digoxin and increasing the IV amiodarone with a slight bolus, then she did convert back to a sinus rhythm with the heart rate in the 60s. Blood pressure then subsequently increased up to 96/42, O2 saturations are 97% on the ventilator. Respiratory rate is about 13. At this time, she is much more stable. She was becoming very unstable with blood pressures in the 60s, requiring the electrocardioversion. At this time, she remains on the IV amiodarone and remains intubated. She is arousable, but obviously is somewhat lethargic probably most likely from the earlier sedation today from the procedures. Her EKG did show some changes with ST-segment depression of about half a millimeter in the anterior leads with T-wave inversions in the inferior lateral leads. Her troponin I was slightly elevated at 0.049, which is still indeterminate associated with the elevated creatinine and renal insufficiency and the rapid heart rate with atrial fibrillation, I would not be surprised at all with elevated troponin I. PAST MEDICAL HISTORY: Significant for the CLL. She has had non-Hodgkin's lymphoma. Apparently, she has had retroperitoneal lymphadenopathy causing obstructive uropathy. She has Enterococcus septicemia in the past. She has C diff in the past. She has chronic urinary tract infections, which were fungal in nature. She has had prior ureteral stents placed for obstructive uropathy. She has diabetes. She has had some questionable history of myocardial infarction in the past according to the records. She has dyslipidemia. She has history of cervical cancer, anxiety and depression. She has had an appendectomy, eye surgery, ear surgery, tonsillectomy, hysterectomy, and back surgery. SOCIAL HISTORY: She is happily . She smoked in the past and no longer smokes. There is no alcohol use. She has 4 children. ALLERGIES: SHE IS ALLERGIC TO BACTRIM, ASPIRIN, PENICILLIN, KEFLEX AND DIFLUCAN. REVIEW OF SYSTEMS: Not obtainable. Please refer to the notes already dictated. The patient is on a ventilator and slightly lethargic. She has no further sedation. This apparently was just being worn off from her previous procedure earlier today. MEDICATIONS: Prior to admission included: 1. Atenolol. 2. Zetia. 3. Neurontin. 4. Crestor. 5. Zoloft. 6. Eliquis. 7. Zanaflex. 8. Vfend. 9. Exenatide injections. MEDICATIONS IN THE HOSPITAL: Included: 1. Albumin. 2. Tenormin. 3. Aztreonam. 4. Zetia. 5. Neurontin. 6. Insulin as needed. 7. Claritin. 8. Zofran. 9. Crestor. 10. 11. Zoloft. 12. Ultram. 13. Vancomycin orally. PHYSICAL EXAMINATION: GENERAL: Reveals a middle-aged, elderly female, who is sedated, somewhat lethargic, minimally arousable at this time, may be due to earlier sedation. Her heart rate earlier when I saw her prior to this dictation was almost 200 beats per minute with atrial fibrillation, is now 66 beats per minute, blood pressure at this time is 94/53, respiratory rate is 12, but she is on the ventilator. HEENT: Shows head to be normocephalic and atraumatic. Carotid pulses are present, but difficult to auscultate due to the ventilator. Her chest is actually clear to auscultation, maybe a few basilar rales are noted, otherwise it is relatively clear. CARDIOVASCULAR: At this time reveals a regular rate and rhythm. There were no gross murmurs noted. No heaves or thrills. ABDOMEN: Soft, but does not appear to be tender at this time. I cannot elicit any pain from the patient, but did not do deep palpation. Did not feel any masses. She does have 2 urostomy tubes coming from the back area. EXTREMITIES: Showed no clubbing, cyanosis, or edema. Pedal pulses are somewhat difficult to palpate. Blood pressure was on the low side and neurologically the patient is intubated and slightly sedated. SKIN: Warm and dry at this time. LABORATORY DATA: Shows a WBC of 2.2, hemoglobin is 8.1, hematocrit 25.3, platelet count is 243,000. INR is 1.4. Her sodium was 136 with potassium of 3.3, chloride was 104, bicarb was 23, BUN was 57, and creatinine was 3.3. Her blood sugar was 225 earlier this morning and this afternoon is 115. Her troponin I was 0.049. Her alkaline phosphatase was 1074 with ALT of 7, total bilirubin was 1.5, earlier troponin I was 0.057. The first one on admission was 0.01. EKG as noted above. IMPRESSION: 1. Atrial fibrillation with rapid ventricular response, which required IV amiodarone, IV digoxin and cardioversion x2 to maintain a sinus rhythm. We will continue the IV amiodarone at this time. We would hold off on any further digoxin unless she becomes tachycardic again and we cannot control the heart rate. 2. Urosepsis. She is status post bilateral nephrostomy tubes. 3. Positive blood cultures with Proteus mirabilis. 4. Elevated troponin I mostly due to demand ischemia and this is actually trending downward. It does not appear to be sudden myocardial infarction, but however she does have some EKG changes compatible with some ischemia, but this was with tachycardia with a heart rate of about 160 beats per minute. 5. Acute renal insufficiency associated with her obstructive uropathy. 6. Chronic lymphocytic leukemia. She is being seen by the Oncology service. At this time, overall impression is this is an ill lady due to most likely urosepsis and atrial fibrillation, it has been converted to a sinus rhythm. We will continue to monitor her and watch her blood pressure and she may need further IV fluids. She did get 500 mL of fluid bolus. Total time I spent with this lady in the intensive care unit was an hour and a half of acute direct care with this lady managing her blood pressure and heart rate as well as electrical cardioversion and managing all her other medical problems at this time and evaluation of the medical records and medication adjustments. Job ID: [id number] MTDD
[2020-05-06 03:56] LABS: ALT (SGPT) 10 U/L (8-55); AST (SGOT) 52 U/L (5-34); Alkaline Phosphatase 1541 U/L (40-110); Anion Gap 17 mmol/L (10-20); BUN (Urea Nitrogen) 58 mg/dL (9.8-20.1); Bilirubin, Total 2.4 mg/dL (0.2-1.2); Calc. Creatinine Clearance 17 mL/min (70-130); Calcium 7.1 mg/dL (7.8-10.44); Carbon Dioxide 21 mmol/L (23-31); Chloride 101 mmol/L (98-107); Estimated GFR-MDRD 13; Globulin 1.7 g/dL (2.4-3.5); Glucose 199 mg/dL (80-115); Magnesium 1.6 mg/dL (1.6-2.6); Potassium 3.6 mmol/L (3.5-5.1); Protein, Total 4.7 g/dL (6.0-8.3); Sodium 135 mmol/L (136-145)
[2020-05-06 04:00] LABS: Band 22 % (5-11); Hemoglobin 9.1 g/dL (12.0-16.0); Lymphocytes 22 % (21-51); MDiff Complete? YES; Mean Corpuscular HGB CONC 32.5 g/dL (32.0-36.0); Mean Corpuscular Hemoglobin 28.5 pg (27.0-31.0); Mean Corpuscular Volume 87.6 fL (78.0-98.0); Mean Platelet Volume 8.7 fL (7.4-10.4); Metamyelocyte 2 % (0-0); Monocytes 22 % (0-10); Myelocyte 2 % (0-0); Neutrophil 30 % (42-75); Platelet Count 495 thou/uL (130-400); Platelet Morphology Comment Appears Increased; RBC Distribution Width 13.7 % (11.5-14.5); Red Blood Cell (RBC) Count 3.18 mill/uL (4.20-5.40); White Blood Cell (WBC) Count 13.1 thou/uL (4.8-10.8)
[2020-05-06] MEDS: Insulin Regular 300 UNITS/3 ML VIAL SC PRN ×4 (04:31→22:56)
[2020-05-06] MEDS: Saccharomyces boulardii 250 MG CAP PO SCH ×2 (08:15→22:05)
[2020-05-06] MEDS: Metoprolol Tartrate 25 MG TAB PO SCH ×2 (08:15→22:44)
[2020-05-06] MEDS: Gabapentin 300 MG CAP PO SCH ×3 (08:15→22:05)
[2020-05-06] MEDS: Loratadine 10 MG TAB PO SCH (08:16)
[2020-05-06] MEDS: Insulin Glargine 10 UNITS in Pre-Filled Syringe 1 EACH SC SCH ×2 (09:04→22:56)
[2020-05-06] MEDS: Amiodarone 450 MG in Dextrose 5% in Water 250 ML IVPB SCH (09:17)
--- NOTE | 2020-05-06 09:26 | PRG ---
DATE OF SERVICE: 05/06/2020 SUBJECTIVE: The patient is currently intubated in the ICU; however, she is not sedated. She is able to nod in response to questions. She does indicate that her nephrostomy tubes are uncomfortable and that the stents are still bothering her bladder. PHYSICAL EXAMINATION: GENERAL: Intubated. CHEST: Symmetric chest expansion. HEART: Irregular rate and rhythm, currently in AFib. ABDOMEN: Soft, nondistended. : Nephrostomy tube is in good position, draining dark urine with old blood. Campos catheter draining dark urine. SKIN: Warm and dry. LABORATORY DATA: Creatinine today is 3.48, up from 2.94 this time yesterday. It risen from 2.18 to 2.94 over the previous 24 hours. Urine culture growing Proteus, pansensitive other than nitrofurantoin. Blood cultures negative. ASSESSMENT AND PLAN: Sepsis secondary to pyelonephritis due to obstructing retroperitoneal lymphadenopathy rendering her ureteral stents insufficient. She did have bilateral nephrostomy tubes placed yesterday. We should know in the coming 24 to 48 hours, how her kidneys will respond, although the rate of change of her creatinine seems to have improved. I will leave antibiotic therapy up to the primary team; however, based on her urine culture, she should be able to be treated for her pyelonephritis with a single agent. TIME SPENT: 30 minutes spent in the patient's care. Job ID: [id number]
[2020-05-06] MEDS: Famotidine 20 MG TAB PO SCH (10:08)
--- NOTE | 2020-05-06 11:00 | PDOC.MOPN ---
Interval History: remains intubated, sedated - Vital Signs Vital Signs: Vital Signs (12 hours) Temp Pulse Resp BP 05/06/20 10:33 97 101/55 L 05/06/20 08:00 98.4 F 10 L 05/06/20 06:57 58 L 111/50 L 05/06/20 06:00 11 L 05/06/20 04:00 99.2 F 11 L 05/06/20 02:15 71 115/47 L 05/06/20 02:00 10 L 05/06/20 00:20 65 112/47 L 05/06/20 00:00 101.5 F H 12 Weight Admit Weight 147 lb 14.4 oz Weight 147 lb 14.4 oz Most Recent Monitor Data Heart Rate from ECG 115 NIBP 96/62 NIBP BP-Mean 73 Respiration from ECG 9 SpO2 98 - Physical Exam General: No acute distress Lungs: Other (on vent) Cardiovascular: Regular rate Extremities: Other Neurological: Other (sedated) - Labs Result Diagrams: 05/06/20 03:00 05/06/20 03:00 Lab results: Laboratory Results - last 24 hr 05/06/20 03:00: WBC 13.1 H, RBC 3.18 L, Hgb 9.1 L, Hct 27.9 L, MCV 87.6, MCH 28.5, MCHC 32.5, RDW 13.7, Plt Count 495 H, MPV 8.7, Neutrophils % (Manual) 30 L , Band Neuts % (Manual) 22 H, Lymphocytes % (Manual) 22, Monocytes % (Manual) 22 H, Metamyelocytes % (Man) 2 H, Myelocytes % 2 H, Plt Morphology Comment Appears Increased H 05/06/20 03:00: Sodium 135 L, Potassium 3.6, Chloride 101, Carbon Dioxide 21 L, Anion Gap 17, BUN 58 H, Creatinine 3.48 H, Estimated GFR (MDRD) 13, Glucose 199 H, Calcium 7.1 L, Magnesium 1.6, Total Bilirubin 2.4 H, AST 52 H, ALT 10, Alkaline Phosphatase 1541 H, Serum Total Protein 4.7 L, Albumin 3.0 L, Globulin 1.7 L, Albumin/Globulin Ratio 1.8 05/05/20 23:53: POC Glucose 140 H 05/05/20 21:32: POC Glucose 116 H 05/05/20 17:33: Troponin I 0.049 H 05/05/20 17:33: Sodium 137, Potassium 3.3 L, Chloride 104, Carbon Dioxide 23, Anion Gap 13, BUN 57 H, Creatinine 3.30 H, Estimated GFR (MDRD) 14, Glucose 115 , Calcium 7.3 L, Magnesium 1.8 05/05/20 17:15: Hgb 8.1 L, Hct 25.3 L 05/05/20 17:00: POC Glucose 103 05/05/20 11:06: POC Glucose 105 05/05/20 10:40: PT 16.6 H, INR 1.4, APTT 48.2 H 05/05/20 00:04: Crossmatch See Detail Status: lab reviewed by me A/P - Problem (1) Acute kidney injury Current Visit: No Code(s): N17.9 - ACUTE KIDNEY FAILURE, UNSPECIFIED Status : Acute (2) Martha UTI Current Visit: No Code(s): B37.49 - OTHER UROGENITAL CANDIDIASIS Status: Acute (3) Clostridium difficile diarrhea Current Visit: No Code(s): A04.72 - ENTEROCOLITIS D/T CLOSTRIDIUM DIFFICILE, NOT SPCF RECUR Status: Acute (4) Chronic lymphocytic leukemia (CLL), B-cell Current Visit: No Code(s): C91.10 - CHRONIC LYMPHOCYTIC LEUK OF B-CELL TYPE NOT ACHIEVE REMIS Status: Chronic - Plan Plan: stop Granix Cont holding Venetoclax Pulmonary care as per Pulm: ABG improved quickly, pH now normal, on minimal vent settings nephrostomy tubes in place. Cont antibiotics for Proteus as per Dr. Simmons, f/u sensitivities will follow
[2020-05-06] MEDS: Sodium Bicarbonate 150 MEQ in Dextrose 5% in Water 1,000 ML IV SCH ×2 (11:24→22:05)
--- NOTE | 2020-05-06 14:39 | PDOC.PALCO ---
Palliative Care Consult - Consult Details Requesting Physician: Dr West Reason for Consult: goals of care, advance directives assistance, family support - Pertinent HPI 69 year old female with who was currently being treated by Dr Cantu for CLL, chronic UTI with bilateral stents in place. Presented to the emergency room with progressing weakness, nausea, vomiting, abdominal pain and fever. No relieving factors. Was to have bilateral stents removes next week, recent discharge from hospital 04/15 where she was managed for a UTI and discharged home with abx and antifungal. On presentation to the emergency room for above complaints she was noted to be tachycardic, tachypneic, and right hydronephrosis , UTI. Admitted for medical management. After admission continued to decline and required intubation and mechanical ventilation. - Pertinent PMH Recurrent UTI, CLL (Last Chemo 04/29/2020) Cervical Cancer, [place] 2009 HDL, DM II, Migraine, Anxiety and depression - Social History Smoking Status: Never smoker Smoking: no tobacco exposure Alcohol Use: none Drug Use History: none Living Situation: independent (Assistance in home setting with paid caregiver) - Medications MAR Reviewed: Yes - Allergies Allergies/Adverse Reactions: Allergies Allergy/AdvReac Type Severity Reaction Status Date / Time aspirin Allergy Severe Verified 05/03/20 19:23 cephalexin monohydrate Allergy Severe Short of Verified 05/03/20 19:23 [From Keflex] Breath Cephalosporins Allergy Severe Short of Verified 05/03/20 19:23 Breath ciprofloxacin [From Cipro] Allergy Severe Severe Verified 05/04/20 16:51 Hives Penicillins Allergy Severe Rash Verified 05/03/20 19:23 sulfamethoxazole Allergy Severe Severe Verified 05/04/20 16:51 [From Bactrim] Hives trimethoprim [From Bactrim] Allergy Severe Severe Verified 05/04/20 16:51 Hives - Subjective Intubated, awakens easily to gentle stimulation, lethargic. No sedation. Poor historian for ROS secondary to lethargy - ROS Non Response: due to endotracheal tube, due to mental status - Objective Vital Signs: Vital Signs - Most Recent Temp Pulse Resp BP Pulse Ox 98.4 F 66 11 L 118/67 100 05/06/20 08:00 05/06/20 12:42 05/06/20 12:00 05/06/20 12:42 05/06/20 08:00 Palliative Performance Scale: 20 - Physical Exam Constitutional: ill appearing HEENT: EOMI, moist MMs Respiratory: no wheezing, diminished lung sound Deviation from normal: Mechanical ventilation Cardiovascular: irregular Gastrointestinal: soft, positive bowel sounds Musculoskeletal: no cyanosis, no clubbing Neurology: no focal deficits Skin: cap refill <2 seconds, no lesions, no rash Deviation from normal: encephalopathic, oriented to self, place - Problem List (1) Palliative care encounter Code(s): Z51.5 - ENCOUNTER FOR PALLIATIVE CARE Current Visit: Yes Status: Acute (2) Acute kidney injury Code(s): N17.9 - ACUTE KIDNEY FAILURE, UNSPECIFIED Current Visit: No Status : Acute (3) Urinary tract infection Current Visit: No Status: Acute (4) Chronic lymphocytic leukemia (CLL), B-cell Code(s): C91.10 - CHRONIC LYMPHOCYTIC LEUK OF B-CELL TYPE NOT ACHIEVE REMIS Current Visit: No Status: Chronic (5) Diabetes Code(s): E11.9 - TYPE 2 DIABETES MELLITUS WITHOUT COMPLICATIONS Current Visit : No Status: Chronic Qualifiers: Diabetes mellitus type: type 2 Diabetes mellitus complication status: without complication Qualified Code(s): E11.9 - Type 2 diabetes mellitus without complications (6) Sepsis Code(s): A41.9 - SEPSIS, UNSPECIFIED ORGANISM Current Visit: No Status: Suspected Qualifiers: Sepsis acute organ dysfunction status: with acute organ dysfunction Severe sepsis acute organ dysfunction type: acute renal failure Severe sepsis shock status: with septic shock - Plan/Recommendations Plan: Palliative care introduced to patient and family. Discussed current multiple morbidities and Goal of Care. Family and patient do not desire to have intubation occur for lengthy period of time. Discussed hope for successful extubation. Will hope for progress over the next 24 hours and revisit goal of care and resuscitation status. Plan is that if she is successfully extubated to transition to a DNAR. Please also refer to Celeste Whittaker dry clipper tender notes in note section. [45] minutes spent on this encounter with >50% of the time in counseling and coordination of care. Thank you for this very appropriate consult.
[2020-05-06] MEDS ORDERED: Digoxin 0.5 MG/2 ML AMP SLOW IVP SCH (15:15)
[2020-05-06] MEDS ORDERED: Digoxin 0.125 MG TAB PO SCH (15:15)
--- NOTE | 2020-05-06 16:44 | PRG ---
DATE OF SERVICE: 05/06/2020 OBJECTIVE: VITAL SIGNS: Heart rates in the 60s, respiratory rates in the 20s, blood pressure 124/57. Events over the last 24 hours have been reviewed. LUNGS: Clear anteriorly. HEART: Regular rhythm. ABDOMEN: Soft. EXTREMITIES: Without edema. Apparently, the patient had communicated with the family that this aggressive care was not consistent with her wishes. She had nephrostomy tubes placed. IMPRESSION: Pyelonephritis with Proteus growing from her blood and her urine. PLAN: Continue supportive care. Blood gas shows pH of 7.4, CO2 of 28, pO2 of 273. Creatinine is 3.48, BUN is 58. White count is 13, hemoglobin 9, and platelets 495. We think we might be able to consider a spontaneous breathing trial in the morning, possible extubation. Critical care time 30 min. Job ID: [id number] MTDD
--- NOTE | 2020-05-06 19:19 | EKG ---
Test Reason : Blood Pressure : / mmHG Vent. Rate : 160 BPM Atrial Rate : 125 BPM P-R Int : 000 ms QRS Dur : 084 ms QT Int : 268 ms P-R-T Axes : 000 -09 219 degrees QTc Int : 437 ms Atrial fibrillation with rapid ventricular response with premature ventricular or aberrantly conducte d complexes Low voltage QRS Abnormal ECG Confirmed by DR. Celestine GONSALES ([id number]) on 05/06/2020 7:18:50 PM Referred By: Confirmed By:DR. Celestine GONSALES
[2020-05-06] MEDS ORDERED: DOPamine 400 MG/D5W 250 ML 250 ML IVPB SCH (22:00)
[2020-05-06] MEDS: Ezetimibe 10 MG TAB PO SCH (22:05)
[2020-05-06] MEDS: Rosuvastatin 20 MG TAB PO SCH (22:05)
[2020-05-06] MEDS: Acetaminophen 325 MG TAB PO PRN (22:42)
[2020-05-07] MEDS: Vancomycin HCl 25 MG/ML Oral PO SCH (00:03)
[2020-05-07] MEDS ORDERED: NPH, Human Insulin Isophane 300 UNIT/3 ML VIAL SC SCH ×2 (00:15→09:00)
[2020-05-07 01:07] VITALS: BP 104/43
[2020-05-07] MEDS ORDERED: Morphine 4 MG/ML VIAL ONE (01:26)
--- NOTE | 2020-05-07 01:27 | CON ---
DATE OF CONSULTATION: REASON FOR CONSULTATION: Elevated creatinine. HISTORY OF PRESENT ILLNESS: This is a 69-year-old female, who presented to the hospitalist with CLL with chronic UTI and bilateral ureteral obstruction. Her creatinine was 1.5 on March 30, which increased to 2.3 and is 3.4 today, so I was consulted. The patient is being followed by Urology. PAST MEDICAL HISTORY: Recurrent UTI, CLL, cervical cancer, [place], migraine, anxiety, depression. SOCIAL HISTORY: No alcohol or drug use. FAMILY HISTORY: Negative for ESRD. ALLERGIES: REVIEWED. HOME MEDICATION LIST: Reviewed. HOSPITAL MEDICATION LIST: Reviewed. REVIEW OF SYSTEMS: Unobtainable. PHYSICAL EXAMINATION: General: The patient is resting. Vital Signs: Afebrile, pulse 75, breathing at 16, blood pressure 136/48. HEENT: Head normocephalic and atraumatic. Eyes intact, no ulcers. Nose intact , no ulcers. Ears intact, no ulcers. Neck: Supple. No JVD. Chest: Symmetrical and clear. Cardiovascular: Shows S1 and S2, no rub, no murmur. Gastrointestinal: Abdomen is soft, bowel sounds positive. Extremities: Show no edema or ulcers. Skin: Shows no rash or petechiae. Musculoskeletal: Shows no joint swelling or stiffness. Genitourinary: Shows no Campos or CVA tenderness. Neurologic: The patient is resting. LABORATORY DATA: Reviewed. ASSESSMENT AND RECOMMENDATIONS: 1. Acute kidney injury with chronic kidney disease, most likely due to multiple etiologies. 2. Hematological malignancy as well as infectious etiology in the setting of acute tubular necrosis. Overall prognosis is poor. No indication for dialysis. 3. Hypertension, stable. 4. Medication based on GFR appropriate. Job ID: [id number] [facility]
[2020-05-07] MEDS: Morphine 4 MG/ML VIAL SLOW IVP PRN ×3 (01:54→03:41)
[2020-05-07] MEDS ORDERED: Morphine 4 MG/ML VIAL SLOW IVP PRN (05:33)
[2020-05-07 06:22] VITALS: TEMP 98.7
[2020-05-07] MEDS ORDERED: Pantoprazole 40 MG VIAL IVP SCH (09:00)
[2020-05-07] MEDS ORDERED: Digoxin 0.125 MG TAB PO SCH (09:00)
--- NOTE | 2020-05-07 13:26 | PDOC.HOSPP ---
- Subjective Encounter Date: 05/06/20 Encounter Time: 13:00 non-verbal Subjective: Patient seen and examined for Sepsis/resp failure. On Amiodarone/Levophed drip. No new complaints. No overnight events - Objective Vital Signs & Weight: Vital Signs (12 hours) Temp Pulse Resp Pulse Ox 05/07/20 06:00 98.7 F 46 L 2 L 67 L 05/07/20 04:00 92 L 05/07/20 01:34 94 L Weight Admit Weight 147 lb 14.4 oz Weight 147 lb 14.4 oz Most Recent Monitor Data Heart Rate from ECG 70 NIBP 117/57 NIBP BP-Mean 77 Respiration from ECG 19 SpO2 96 I&O: 05/06/20 05/07/20 05/08/20 06:59 06:59 06:59 Intake Total 5983 60 Output Total 523 385 Balance 5460 -325 Result Diagrams: 05/06/20 03:00 05/06/20 03:00 Additional Labs: Accuchecks 05/06/20 05/06/20 05/06/20 22:15 17:06 11:38 POC Glucose 316 H 351 H 331 H Radiology Reviewed by me: Yes (CXR - no infiltrate) EKG Reviewed by me: Yes (Tele SR with intermittent Afib) Hospitalist ROS - Review of Systems ROS unobtainable: due to mental status - Exam General Appearance: ill appearing General - other findings: on Vent Heart: RRR, no gallops, no rubs, normal peripheral pulses Respiratory: no wheezes, no rales, rhonchi Gastrointestinal: soft, normal bowel sounds, no guarding, no rigidity Extremities: no cyanosis, no clubbing Psychiatric: lethargic Psychiatric - other findings: Neuro/Psych - cannot assess due to current condition Hosp A/P - Plan DVT proph w/SCDs Severe sepsis/Septic shock due to Proteus UTI and bacteremia - POA Acute hypoxic resp failure req mech vent Afib with RVR - on Amiodarone drip Obstructive uropathy Anemia prob due to CLL s/p 1 unit PRBC TEODORO - worsening Metabolic acidosis due to sepsis DM2 CLL Other issues per previous notes PLAN: Cont Azactam Cont IVF with Bicarb s/p Nephrostomy tube Cont Vent support Cont Pressors Cont Amiodarone drip Cont sliding scale Onc/Critical care/Cardio input appreciated AM labs
--- NOTE | 2020-05-07 21:16 | DIS ---
DATE OF ADMISSION: 05/03/2020 DATE OF DISCHARGE: 05/07/2020 SUMMARY DATE : April, at 6:26 a.m. BRIEF HOSPITAL COURSE: The patient was a 69-year-old female with CLL and recurrent UTIs, status post bilateral stents placement, presented to the hospital with generalized weakness, fever, abdominal discomfort along with nausea and vomiting on April,. She was admitted to the hospital with a diagnosis of sepsis secondary to urinary tract infection. Due to multiple drug allergies, she was started on aztreonam. She received 1 dose of vancomycin in the emergency room. The patient was evaluated by Urology, Dr. Weston. COVID-19 came back negative. The patient underwent bilateral nephrostomy tube placement under ultrasound guidance. A blood culture and urine culture were consistent with Proteus. The patient then developed atrial fibrillation with rapid ventricular response with hypotension. She was started on amiodarone. Later on, the patient became hypotensive and was started on Levophed. She was also followed by Palliative Care Team. Since last night, the patient started to have rhythm abnormality with heart rate dropping in 20s. She was started on dopamine drip per Cardiology recommendation. The patient then went into ventricular tachycardia and was placed on transcutaneous pacing. Family decided to make her DNR. This morning, the patient around 6:26 a.m. FINAL DIAGNOSES: 1. Severe sepsis/septic shock secondary to complicated Proteus urinary tract infection with Proteus bacteremia. 2. Acute hypoxic respiratory failure, requiring mechanical ventilation. 3. Atrial fibrillation with rapid ventricular response, requiring cardioversion and amiodarone. 4. Obstructive uropathy with bilateral ureteral stents. The patient underwent bilateral nephrostomy tube. 5. Anemia due to chronic lymphocytic leukemia, status post 1 unit of PRBC this admission. 6. Worsening acute kidney injury. 7. Metabolic acidosis. 8. Diabetes mellitus type 2. 9. Fibromyalgia. 10. Anxiety. Job ID: [id number]
--- NOTE | 2020-05-09 14:26 | EKG ---
Test Reason : Blood Pressure : / mmHG Vent. Rate : 091 BPM Atrial Rate : 091 BPM P-R Int : 114 ms QRS Dur : 080 ms QT Int : 354 ms P-R-T Axes : 031 -16 038 degrees QTc Int : 435 ms Normal sinus rhythm Normal ECG Confirmed by JAYASHREE POSADAS M.D. ([id number]), editorial clerk STEFAN JOLLY ([id number]) on 05/09/2020 2:25:52 PM Referred By: Confirmed By:JAYASHREE POSADAS M.D.
--- NOTE | 2020-05-11 10:18 | PQF ---
[employer] Lead Operator Crystal Reports Leonardform BARTOLOME Nuñez JAYLEN BRAVO MD [id number] [facility] [id number] CLINICAL DOCUMENTATION CLARIFICATION FORM: POST DISCHARGE Addendum to original discharge summary date: ____ Late entry note date: __ DATE: 05/11/2020 ATTN: Jaylen Archuleta Please exercise your independent, professional judgment in responding to the clarification form. Clinical indicators are provided on the bottom of this form for your review Please check appropriate box(s): [ x ] UTI is associated with Campos catheter [ ] UTI is not associated with Campos catheter [ ] UTI is associated with Ureteral stent [ ] UTI is not associated with Ureteral stent [ ] Other diagnosis [ ] Unable to determine In addition, please specify: Present on Admission (POA): [ x] Yes [ ] No [ ] Unable to determine For continuity of documentation, please document condition throughout progress notes and discharge summary. Thank You. CLINICAL INDICATORS - SIGNS / SYMPTOMS / LABS Hydronephrosis, UTI, ureteral obstruction. I have asked that a Campos replaced yesterday in the emergency room to see how her creatinine and hydronephrosis respond. If hydronephrosis does not improve with Acmpos catheter drainage, she will likely require percutaneous nephrostomy tubes. Afterwards, we can remove her stents - Consult 05/04 by Steven Weston MD Given that patient is now developing worsening renal function despite indwelling stents and Campos catheter with ultrasound showing persistent hydronephrosis, I recommended bilateral nephrostomy tubes - PN 05/05 by Steven Weston MD Ureteral stents will remain even after nephrostomy tube placement until she is clinically more stable. I do not think that her sepsis secondary to urinary tract infection will improve with antibiotic treatment only, requires drainage of her renal units - PN 05/05 by Steven Wesotn MD Septic shock secondary to complicated Proteus urinary tract infection with Proteus bacteremia - Discharge summary RISK FACTORS Patient with ureteral stents and Campos catheter - Consult 05/04 by Steven Weston MD Persistent hydronephrosis - PN 05/05 by Steven Weston MD TREATMENT: Percutaneous bilateral nephrostomy tubes - Procedure note 05/05 by Arcenio Martinez MD IV fluids - Medications IV antibiotics - Medications (This form is maintained as a part of the permanent medical record) 2014 [employer]. All Rights Reserved Yariel [email or web address]
== END 2020-05-07 06:26 | disposition expired | DRG 698 ==
LOC: ERS 13:26 → 2SW 20:13 → ONC 05-04 16:16 → IMCU/EMU 05-04 23:24 → CCU 05-05 01:55 → T4-A 05-07 06:19
PROVIDERS: ADMIT Internal Medicine; ATTEND Internal Medicine
PROC: 8E0ZXY6 Isolation (ICD-10-PCS; principal; 2020-05-03)
PROC: 0T9430Z Drainage of Left Kidney Pelvis with Drainage Device, Percutaneous Approach (ICD-10-PCS; 2020-05-05)
PROC: 0T9330Z Drainage of Right Kidney Pelvis with Drainage Device, Percutaneous Approach (ICD-10-PCS; 2020-05-05)
PROC: BT13YZZ Fluoroscopy of Bilateral Kidneys using Other Contrast (ICD-10-PCS; 2020-05-05)
PROC: 0BH17EZ Insertion of Endotracheal Airway into Trachea, Via Natural or Artificial Opening (ICD-10-PCS; 2020-05-05)
PROC: 5A1945Z Respiratory Ventilation, 24-96 Consecutive Hours (ICD-10-PCS; 2020-05-05)
PROC: 30233N1 Transfusion of Nonautologous Red Blood Cells into Peripheral Vein, Percutaneous Approach (ICD-10-PCS; 2020-05-05)
PROC: 3E033XZ Introduction of Vasopressor into Peripheral Vein, Percutaneous Approach (ICD-10-PCS; 2020-05-05)
DX: T83.511A Infection and inflammatory reaction due to indwelling urethral catheter, initial encounter (principal); A41.50 Gram-negative sepsis, unspecified; J96.01 Acute respiratory failure with hypoxia; R65.21 Severe sepsis with septic shock; C91.10 Chronic lymphocytic leukemia of B-cell type not having achieved remission; N30.00 Acute cystitis without hematuria; E87.1 Hypo-osmolality and hyponatremia; N17.9 Acute kidney failure, unspecified; E87.2 Acidosis; J98.11 Atelectasis; N13.6 Pyonephrosis; A04.72 Enterocolitis due to Clostridium difficile, not specified as recurrent; Z51.5 Encounter for palliative care; Z66 Do not resuscitate; T83.112A Breakdown (mechanical) of indwelling ureteral stent, initial encounter; Z20.828 Contact with and (suspected) exposure to other viral communicable diseases; I25.10 Atherosclerotic heart disease of native coronary artery without angina pectoris; E78.5 Hyperlipidemia, unspecified; F41.9 Anxiety disorder, unspecified; F32.9 Major depressive disorder, single episode, unspecified; M79.7 Fibromyalgia; B96.4 Proteus (mirabilis) (morganii) as the cause of diseases classified elsewhere; R59.0 Localized enlarged lymph nodes; D63.0 Anemia in neoplastic disease; E11.22 Type 2 diabetes mellitus with diabetic chronic kidney disease; N18.9 Chronic kidney disease, unspecified; I48.91 Unspecified atrial fibrillation; Z92.21 Personal history of antineoplastic chemotherapy; I25.2 Old myocardial infarction; Z98.51 Tubal ligation status; Z90.49 Acquired absence of other specified parts of digestive tract; Z90.710 Acquired absence of both cervix and uterus; Z88.1 Allergy status to other antibiotic agents; Z88.0 Allergy status to penicillin; Z88.8 Allergy status to other drugs, medicaments and biological substances; Z87.891 Personal history of nicotine dependence; Z85.41 Personal history of malignant neoplasm of cervix uteri; Y83.1 Surgical operation with implant of artificial internal device as the cause of abnormal reaction of the patient, or of later complication, without mention of misadventure at the time of the procedure; Y84.6 Urinary catheterization as the cause of abnormal reaction of the patient, or of later complication, without mention of misadventure at the time of the procedure
CPT/HCPCS: 36415; 36416; 36430; 50430; 50432; 51701; 71045; 74176; 76770; 80048; 80053; 81001; 81003; 81015; 82533; 82805; 83605; 83690; 83735; 84100; 84484; 85007; 85025; 85027; 85610; 85730; 86850; 86900; 86901; 87040; 87077; 87086; 87149; 87186; 87635; 93005; 93010; 94002; 94003; 94640; 94760; 96365; 96366; 96368; 96375; C1729; J0282; J1160; J1265; J1447; J1815; J2250; J2270; J2405; J2704; J2997; J3010; J3370; J3480; J3490; J7070; J7620; P9016; P9045; P9047; Q9967; U0003